=== PATIENT | male | born 1965 | race Caucasian/White ===

== ENCOUNTER 2024-03-06 21:54 | Emergency (ER) | payer OTHER, SELFPAY ==
[2024-03-06 22:04] VITALS: BP 154/78; PULSE 88; RESP 18; TEMP 36.8; O2SAT 99; BMI 27.5
--- NOTE | 2024-03-06 22:14 | CRLHL7_ITS ---
For Patients: As a result of the Century Cures Act, medical imaging exams and procedure reports are released immediately into your electronic medical record. You may view this report before your referring provider. If you have questions, please contact your health care provider. INDICATION: Leg pain and swelling TECHNIQUE: Ultrasound venous duplex left lower extremity. Real-time mckeon-scale (B mode 2D), color Doppler, and spectral Doppler imaging were performed with compression and augmentation. COMPARISON: None FINDINGS: Deep veins: Thrombosis of the posterior tibial vein is present. The common femoral, femoral and popliteal veins are patent and compressible. Superficial veins: The visualized greater saphenous and superficial veins of the leg and calf are unremarkable. Soft tissue: No masses or cysts are identified. No adenopathy is seen. IMPRESSION: 1. Thrombosis of the posterior tibial vein is present. The findings were discussed with Dr. Loera at 11:04 PM. Dictated by Damian Taylor MD @ 03/06/2024 11:04:02 PM Dictated by: Damian Taylor MD @ 03/06/2024 23:04:11 (Electronically Signed)
--- OUTSIDE RECORDS SUMMARY | 2024-03-06 23:15 | XMS_ITS | Clinical Summary ---
Author Organization [facility] Address [address] [place] [address] Care Team Providers Care Vegetable Sorter Name Role Phone Rahul Sepulveda APRN, CNP Primary Care Provid er Source Comments You are receiving this document as you are listed as the primary care provider,follow-up provider, or the patient has been referred to you for consultation.This is in compliance with the Medicare and[facility] EHR Incentive Program,which states Providers who transition their patient to another setting of careor provider of care or refers their patient to another provider of care shouldprovide summary care record for each transition of care or referral. [facility] All[facility]ies No known active allergies Medications Medication Sig Dispensed Refills Start Date End Date Status methylPREDNISolone (MEDROL 21 TABLET DOSEPACK) 4 MG tabletIndications:I njury of right foot, initial encounter Follow package directions 21 Tablet 08/15/2022 Active Active Problems No known active problems Immunizations Name Administration Dates Next Due Flu Vac Preserv Free (3+yrs) 07/27/2012,07/11/20 07 Influenza IIV4 (Quadrivalent) 0.5mL (22248) 02/2022,07/19/2020,08/08/2013 Influenza, Unspecified Formulation 07/02/2002 Moderna Monovalent 12+ 09/28/2020,08/31/2020 Pfizer Monovalent 12+ Purple Top 08/19/2021 TDAP (ADACEL) 08/08/2006 Family History Medical History Relation Name Comments High Cholesterol Father Hypertension Father Cancer, Breast Mother Clotting Disorder Mother protein S def Diabetes, Type II Mother High Cholesterol Mother Hypertension Mother Hypertension Brother 2 High Cholesterol Sister 1 Clotting Disorder Sister 2 Protein S def Cancer, Breast Sister 3 Clotting Disorder Sister 3 Protein S def Relation Name Status Comments Father Alive Mother Alive Brother 1 Alive Brother 2 Alive Daughter Alive Sister 1 Alive Sister 2 Alive Sister 3 Alive Son 1 Alive Son 2 Alive Social History Tobacco Use Types Packs/Day Years Used Date Smoking Tobacco: Never Alcohol Use Standard Drinks/Week Comments Yes 5 (1 standard drink = 0.6 oz pur e alcohol) Sex and Gender Information Value Date Recorded Sex Assigned at Not on file Gender Identity Not on file Sexual Orientation Not on file Last Filed Vital Signs Vital Sign Reading Time Taken Comments Blood Pressure 130/74 07/21/2022 3:06 PM NAVAL GUNFIRE LIAISON OFFICER Pulse 85 07/21/2022 3:06 PM [employer]AL GUNFI[employer] LIAISON OFFICER Temperature 36.2 ??C (97.2 ??F) 08/15/2022 8:09 AM CS T Respiratory Rate - - Oxygen Saturation 96% 07/21/2022 3:06 PM NAVAL GUNFIRE LIAISON OFFICER Inhaled Oxygen Concentration - - Weight 80.3 kg (177 lb) 10/05/2023 7:34 AM NAVAL GUNFIRE LIAISON OFFICER Height 175.3 cm (5' 9) 10/05/2023 7:34 AM NAVAL GUNFIRE LIAISON OFFICER Body Mass Index 26.14 10/05/2023 7:34 AM NAVAL GUNFIRE LIAISON OFFICER Plan of Treatment Health Maintenance Due Date Last Done Comments Diabetes Screening- (based on age and BMI) 1965 Hep C Screening (Preventive Services) 1965 PSA Screening Discussion 1965 HIV Screening (Preventive Services) 1981 Adult Preventive Visit 1983 HepB (1) 1984 Zoster/Shingles (1 of 2) 2015 DTaP/Tdap/Td (2 - Tdap) 08/08/2016 08/08/2006 Cholesterol 08/08/2018 08/08/2013, 07/13, 08/08/2006 FIT Colon Cancer Screening 02/06/2023 02/06/2022 COVID-19 Vaccine ( season) 2023 08/19/2021, 09/28/2020, 08/31/2020 Influenza (#1) 2024 08/19/2021, 02/2020, 07/09/2019, Additional history exists HepA Aged Out No longer eligi ble based on patient's age to complete this topic Hib Aged Out No longer eligi ble based on patient's age to complete this topic IPV (Polio) Aged Out No longer eligi ble based on patient's age to complete this topic MCV4 Aged Out No longer eligi ble based on patient's age to complete this topic Pneumococcal Aged Out No longer eligi ble based on patient's age to complete this topic Procedures Procedure Name Priority Date/Time Associated Diagnosis Comments FIT COLON RECTAL CANCER SCREENING Routine 02/06/2022 7:20 AM CDT Encounter for screening for malignant neoplasm of colon [ICD-10-CM] LIPID PANEL & DIRECT LDL (IF NEEDED) Routine 08/08/2013 11:29 AM [employer] GUNFI[employer] LIAISON OFFICER Screening for lipoid disorders from Last 3 Months or Most Recently Relevant to Health Maintenance Results * FIT Colon Rectal Cancer Screening (02/06/2022 7:20 AM CDT) FIT Specimen 1 Negative Negative 02/08/2022 8:54 AM CDT [facility] Stool Non-blood Collection / Unknown 02/06/2022 7:20 AM CDT 02/07/2022 9:21 PM CDT Ana Martini APRN, DNP LAB_1 [facility] [address] [phone] * (ABNORMAL) Lipid Panel and Direct LDL(If Needed) (08/08/2013 11:29 AM [employer] LIAISON OFFICER) Cholesterol 222(H) 0 - 200 mg/dL HP CONVERSION Triglycerides 78 0 - 149 mg/dL HP CONVERSION HDL Cholesterol 50 >39 mg/dL HP CONVERSION Cholesterol/HDL Ratio Screen 4.4 HP CONVERSION LDL Calculated 156(H) 19 - 130 mg/dL HP CONVERSION Hours Fasting 12.0 HP CONVERSION 08/08/2013 11:2 9 AM [employer] LIAISON OFFICER 08/08/2013 11:29 AM [employer] LIAISON OFFICER Narrative HP CONVERSION - 08/08/2013 12:19 PM NAVAL G[employer]FI[employer] LIAISON OFFICER Performed at [facility], [address] [facility], [place] [address] Marie Hess APRN, BRIAN LAB_1 HP CONVERSION from Last 3 Months or Most Recently Relevant to Health Maintenance Care Teams Vegetable Sorter Relationship Specialty Start Date End Date Rahul Sepulveda APRN, BEST WORKER [address] [place] [id number] PCP - General 11/14/10
--- OUTSIDE RECORDS SUMMARY | 2024-03-06 23:15 | XMS_ITS | Encounter Summary ---
Author Organization [employer] [facility] Address [address] [place] [address] Care Team Providers Care Certified Medication Technician Name Role Phone Rahul Sepulveda APRN, LIFT OPERATOR Primary Care Provid er Encounter Details Date Type Department Care Team (Late st Contact Info) Description 01/26/2022 Lab Requisition Tre [phone] Ana Martini APRN, DNP [address] [facility] [address] [place] [address] Encounter for screening for malignant neoplasm of colon Social History Tobacco Use Types Packs/Day Years Used Date Smoking Tobacco: Never Alcohol Use Standard Drinks/Week Comments Yes 5 (1 standard drink = 0.6 oz pur e alcohol) Sex and Gender Information Value Date Recorded Sex Assigned at Not on file Gender Identity Not on file Sexual Orientation Not on file documented as of this encounter Plan of Treatment Not on file documented as of this encounter Procedures Procedure Name Priority Date/Time Associated Diagnosis Comments FIT COLON RECTAL CANCER SCREENING Routine 02/06/2022 7:20 AM CDT Encounter for screening for malignant neoplasm of colon [ICD-10-CM] [facility] FIT KIT Routine 01/27/2022 9:3 7 PM CDT Encounter for screening for malignant neoplasm of colon [ICD-10-CM] documented in this encounter Results * FIT Colon Rectal Cancer Screening (02/06/2022 7:20 AM CDT) FIT Specimen 1 Negative Negative 02/08/2022 8:54 AM CDT [facility] Stool Non-blood Collection / Unknown 02/06/2022 7:20 AM CDT 02/07/2022 9:21 PM CDT Ana Lara Lianet FREEDMAN DNP LAB_[address] Performing [address] [facility] de Phone Number [facility] [address] [place] [address] * [facility] FIT KIT (01/27/2022 9:37 PM CDT) [facility] FIT KIT SENT Yes 02/07/2022 9:21 PM CDT [facility] KIT RECEIVED Kit Received at [facility] 02/07/2022 9:21 PM CDT [facility] Stool Non-blood Collection / Unknown 01/27/2022 9:37 PM CDT 01/27/2022 9:38 PM CDT Ana Martini APRN, OPAL LAB_1 Performing Organization Address [facility] de Phone Number [address] [phone] documented in this encounter Visit Diagnoses Diagnosis Encounter for screening for malignant neoplasm of colon Special screening for malignant neoplasms, colon documented in this encounter Care Teams Certified Medication Technician Relationship Specialty Start Date End Date Rahul Sepulveda APRN, BRIAN [address] [place] [address] PCP - General 11/14/10 documented as of this encounter
--- OUTSIDE RECORDS SUMMARY | 2024-03-06 23:15 | XMS_ITS | Referral Summary ---
Author Organization [facility] Address [address] [place] [address] Care Team Providers Care Jet Operator Name Role Phone [facility] Provi gildardo Allergies No known active allergies Medications Medication Sig Dispensed Refills Start Date End Date Status azithromycin (ZITHROMAX) 250 MG tabletIndications:Bro nchitis Two tablets first day, then one tablet daily for four days. 6 tablet 10/28/2018 Active Active Problems No known active problems Immunizations Name Administration Dates Next Due TDAP Vaccine (Boostrix) 08/08/2006 Social History Tobacco Use Types Packs/Day Years Used Date Smoking Tobacco: Never Smokeless Tobacco: Never Alcohol Use Standard Drinks/Week Comments Yes 0 (1 standard drink = 0.6 oz pur e alcohol) Sex and Gender Information Value Date Recorded Sex Assigned at Not on file Gender Identity Not on file Sexual Orientation Not on file Last Filed Vital Signs Vital Sign Reading Time Taken Comments Blood Pressure 122/78 10/28/2018 1:24 PM CDT Pulse 85 10/28/2018 1:24 PM CDT Temperature 36.4 ??C (97.5 ??F) 10/28/2018 1:24 PM CD T Respiratory Rate - - Oxygen Saturation 96% 10/28/2018 1:24 PM CDT Inhaled Oxygen Concentration - - Weight 80.3 kg (177 lb) 10/28/2018 1:24 PM CDT Height 175.3 cm (5' 9) 10/28/2018 1:24 PM CDT Body Mass Index 26.14 10/28/2018 1:24 PM CDT Plan of Treatment Not on file Care Teams Jet Operator Relationship Specialty Start Date End Date [address] [place] [address] PCP - General 10/28/18
--- OUTSIDE RECORDS SUMMARY | 2024-03-06 23:15 | XMS_ITS | Clinical Summary ---
Author Organization [employer] [facility] Address [place], [place] [address] Care Team Providers Care Import Export Coordinator Name Role Phone Family, Ellie San - [place] Primary Care Provider Unavailable Allergies No known active allergies Social History Tobacco Use Types Packs/Day Years Used Date Smoking Tobacco: Never Assessed Sex and Gender Information Value Date Recorded Sex Assigned at Not on file Gender Identity Not on file Sexual Orientation Not on file Last Filed Vital Signs Vital Sign Reading Time Taken Comments Blood Pressure 157/91 08/07/2022 6:39 PM WAREHOUSE ENGINEER Pulse 78 08/07/2022 6:39 PM WAREHOUSE ENGINEER Temperature 36.6 ??C (97.9 ??F) 08/07/2022 6:39 PM CS T Respiratory Rate 18 08/07/2022 6:39 PM WAREHOUSE ENGINEER Oxygen Saturation 99% 08/07/2022 6:39 PM WAREHOUSE ENGINEER Inhaled Oxygen Concentration - - Weight 81.6 kg (180 lb) 08/07/2022 6:39 PM WAREHOUSE ENGINEER Height 175.3 cm (5' 9) 08/07/2022 6:39 PM WAREHOUSE ENGINEER Body Mass Index 26.58 08/07/2022 6:39 PM WAREHOUSE ENGINEER Plan of Treatment Health Maintenance Due Date Last Done Comments Tdap 1976 Depression screening for age 12+ 1977 HIV for age 15-65 1980 BMI (ht and wt on same day) for age 18+ 1983 Hepatitis C screening for ag e 18-79 1983 Tetanus booster 1985 Colonoscopy through age 75 2010 Lipids for age 45-75 2010 Zoster (shingles) series for age 50+ (1 of 2) 2015 COVID-19 vaccine series ( season) 2023 08/19/2021 Influenza for age 50-64 04/13/2023 Pneumococcal series for age 6-64 Aged Out No longer eligible based on patient's age to complete this topic Care Teams Import Export Coordinator Relationship Specialty Start Date End Date Ellie Garcia - [place] PCP - General Family Practice 08/07/22
--- OUTSIDE RECORDS SUMMARY | 2024-03-06 23:15 | XMS_ITS | Clinical Summary ---
Author Organization [facility] Address [address] [place] [address] Care Team Providers Care Crop Puller Name Role Phone [facility] Primary Care Provi gildardo Allergies No known [...] of Treatment Not on file Care Teams Crop Puller Relationship Specialty Start Date End Date [address] [place] [address] PCP - General 10/28/18
--- NOTE | 2024-03-06 23:19 | ED.GENADULT ---
HPI - General Adult General Chief complaint: Extremity Pain/Injury, Lower Stated complaint: left leg calf pain Time Seen by Provider: 03/06/24 22:08 Source: patient Mode of arrival: ambulatory Limitations: no limitations History of Present Illness HPI narrative: 58-year-old male presenting today with left calf pain. The pain is been present since last week. Patient states he was traveling to for [place] by car in several days later his calf pain started. He denies fevers, chills, nausea, vomiting. He denies any redness of the calf. He states that the calf has gotten more swollen. He denies shortness of breath, cough or chest pain. He states that several of his family members have had history is of DVT any does have a protein S deficiency the runs in his family. He denies any personal history of DVTs in the past or blood clots. He is not on any anticoagulation. Related Data Previous Rx's ?Medication ?Instructions ?Recorded apixaban 5 mg tablet (Eliquis) 5 mg PO BID #60 tabs 03/06/24 warfarin 5 mg tablet 5 mg PO DAILY #30 tabs 03/06/24 Allergies Allergy/AdvReac Type Severity Reaction Status Date / Time No Known Drug Allergies Allergy Verified 03/06/24 22:06 Review of Systems Status of ROS: Reports: 10 or more systems reviewed and unremarkable except as noted in History and below Exam Narrative: Exam Narrative: Well-nourished well-developed patient in no acute distress. Alert and oriented. Answers questions appropriately. Mood and affect are appropriate. Thoughts are goal oriented and rational. No tangential or magical thinking noted. Patient speaks in full sentences without needing to catch his breath. HEENT: Normocephalic atraumatic. Extraocular muscles are intact. Conjunctivae are moist without any icterus noted. Moist mucous membranes. Cardiovascular is regular rate and rhythm, S1-S2 present without any murmurs. Lungs are clear auscultation bilaterally. No wheezes rhonchi or rales are appreciated. Extremities: Bilateral lower extremities are without edema. Normal DP and PT pulses. Left calf is visibly more swollen than the right. He has tenderness to palpation of the calf. He has good DP and PT pulses. There is no redness or skin changes. Skin: Well perfused without any obvious rashes. Const: Vital Signs, click to edit/add: Vital Signs - 24 hr 03/06/24 22:04 Temperature 98.2 F Pulse Rate [Right Pulse Oximeter] 88 Respiratory Rate 18 Blood Pressure [Ri ght Upper Arm] 154/78 H Pulse Oximetry 99 Oxygen Delivery Me thod Room Air Course Course ED Course: Ultrasound of lower extremity does show a DVT. Eliquis 10 mg x 1 given in the ED today. Vital Signs Vital signs: Initial Vital Signs Temperature 98.2 F 03/06/24 22:04 Temperature Source Temporal Artery Scan 03/06/24 22:04 Pulse Rate 88 03/06/24 22:04 Respiratory Rate 18 03/06/24 22:04 Blood Pressure 154/78 H 03/06/24 22:04 Blood Pressure Mean 103 03/06/24 22:04 Blood Pressure Position Sitting 03/06/24 22:04 Pulse Oximetry 99 03/06/24 22:04 Oxygen Delivery Method Room Air 03/06/24 22:04 Vital Signs Temperature 98.2 F 03/06/24 22:04 Pulse Rate 88 03/06/24 22:04 Respiratory Rate 18 03/06/24 22:04 Blood Pressure 154/78 H 03/06/24 22:04 Pulse Oximetry 99 03/06/24 22:04 Oxygen Delivery Method Room Air 03/06/24 22:04 Temperature 98.2 F 03/06/24 22:04 Pulse Rate 88 03/06/24 22:04 Respiratory Rate 18 03/06/24 22:04 Blood Pressure 154/78 H 03/06/24 22:04 Pulse Oximetry 99 03/06/24 22:04 Oxygen Delivery Method Room Air 03/06/24 22:04 Medical Decision Making MDM Narrative Medical decision making narrative: 58-year-old male with DVT. Patient will be started on Eliquis. Follow-up with primary care next week. Imaging Data Venous US: Attestation: I have reviewed the pertinent imaging results. Radiologist's impression: INDICATION: Leg pain and swelling TECHNIQUE: Ultrasound venous duplex left lower extremity. Real-time mckeon-scale (B mode 2D), color Doppler, and spectral Doppler imaging were performed with compression and augmentation. COMPARISON: None FINDINGS: Deep veins: Thrombosis of the posterior tibial vein is present. The common femoral, femoral and popliteal veins are patent and compressible. Superficial veins: The visualized greater saphenous and superficial veins of the leg and calf are unremarkable. Soft tissue: No masses or cysts are identified. No adenopathy is seen. IMPRESSION: 1. Thrombosis of the posterior tibial vein is present. Discharge Plan Discharge Clinical Impression: DVT (deep venous thrombosis) Patient Disposition: Home, Self-Care Condition: Stable Additional Instructions: Start Eliquis as prescribed. Follow-up with your primary care provider next week. Return to the ER if you develop shortness of breath, cough or fever. Coumadin also prescribed in the event that you cannot afford the Eliquis. If you take the Coumadin instead of the Eliquis, you need to have an INR check on Sunday. Prescriptions: New Eliquis 5 mg tablet 5 mg PO BID Qty: 60 0RF Rx Instructions: Take 10 mg tomorrow morning, then 5 mg twice daily subsequently. warfarin 5 mg tablet 5 mg PO DAILY Qty: 30 0RF Follow Up/Referrals: Provider,Not a Local [Primary Care Provider] - Stand Alone Forms: [employer] Info Instructions
[2024-03-06] MEDS: APIXABAN 5 MG TABLET 10 MG PO (23:37)
[2024-03-07] VITALS: BP 145/74; PULSE 81; RESP 18; TEMP 36.8; O2SAT 99
[2024-03-07 00:45] VITALS: BP 145/74; PULSE 81; RESP 18; TEMP 36.8
== END 2024-03-07 00:45 | disposition home or self-care (01) ==
PROVIDERS: Emergency Provider Family Medicine
DX: I82.402 Acute embolism and thrombosis of unspecified deep veins of left lower extremity (principal)
CPT/HCPCS: 93971; 99284; A9270

== ENCOUNTER 2024-03-15 12:20 | Emergency (ER) | payer OTHER, SELFPAY ==
[2024-03-15 12:34] VITALS: BP 138/89; PULSE 97; RESP 16; TEMP 36.6; O2SAT 95
--- NOTE | 2024-03-15 12:51 | CRLHL7_ITS ---
For Patients: As a result of the Century Cures Act, medical imaging exams and procedure reports are released immediately into your electronic medical record. You may view this report before your referring provider. If you have questions, please contact your health care provider. INDICATION: Shortness of breath right lower chest pain TECHNIQUE: CT chest with 95 mL Isovue 370 COMPARISON: None. FINDINGS: Lungs and pleura: Wedge-shaped mixed ground-glass and parenchymal subpleural consolidation in the right lower lobe likely reflecting pulmonary infarction. There is bibasilar atelectasis. No findings for right heart strain. Heart and vasculature: Heart size is normal. Thoracic aorta and pulmonary artery are normal in caliber. Right lower lobe segmental and subsegmental pulmonary emboli. Lymph nodes/mediastinum: No mediastinal, hilar, or axillary adenopathy. Chest wall: No masses. Bones: Unremarkable for age. IMPRESSION: 1. Right lower lobes segmental and subsegmental pulmonary emboli. There is a wedge-shaped mixed ground-glass and parenchymal consolidation in the right lower lobe that most likely reflects a pulmonary infarction. No findings for right heart strain. Results called to Dr. Florez on 03/15/24 at 2:45pm. Please note that all CT scans at this facility use dose modulation, iterative reconstruction, and/or weight-based dosing when appropriate to reduce radiation dose to as low as reasonably achievable. Dictated by Sarita Irving MD @ 03/15/2024 2:45:23 PM (Electronically Signed)
--- NOTE | 2024-03-15 12:51 | CRLHL7_ITS ---
For Patients: As a result of the Century Cures Act, medical imaging exams and procedure reports are released immediately into your electronic medical record. You may view this report before your referring provider. If you have questions, please contact your health care provider. INDICATION: Back pain abdominal pain fever chills TECHNIQUE: CT abdomen and pelvis with 95 mL Isovue 370 COMPARISON: None. FINDINGS: Liver: Normal in size and attenuation. No suspicious masses. Gallbladder and bile ducts: No stones or inflammation. No biliary dilatation. Pancreas: Unremarkable. No mass or inflammation. Spleen: Normal in size. No masses. Adrenal glands: Normal in size. No nodules. Kidneys: Normal in size. No suspicious masses, stones, or hydronephrosis. GI tract: Unremarkable. Normal in caliber. No sign of mass or inflammation. Normal appendix. Vasculature: Abdominal aorta is normal in caliber. Lymph nodes: No lymphadenopathy. Peritoneum/Abdominal Wall: Unremarkable. No sign of mass or infiltration. No free air or significant free fluid. Pelvis: Enlarged prostate gland. Bones: Unremarkable for age. IMPRESSION: No acute findings in the abdomen or pelvis. No hydronephrosis. Please note that all CT scans at this facility use dose modulation, iterative reconstruction, and/or weight-based dosing when appropriate to reduce radiation dose to as low as reasonably achievable. Dictated by Sarita Irving MD @ 03/15/2024 2:40:06 PM (Electronically Signed)
--- OUTSIDE RECORDS SUMMARY | 2024-03-15 13:04 | XMS_ITS | Referral Summary ---
Author Organization [facility] Address [address] [place] [address] Care Team Providers Care Grant Specialist Name Role Phone [facility] Primary Care Provi gildardo Allergies No [...] of Treatment Not on file Care Teams Grant Specialist Relationship Specialty Start Date End Date [address] [place] [address] PCP - General 10/28/18
--- OUTSIDE RECORDS SUMMARY | 2024-03-15 13:04 | XMS_ITS | Clinical Summary ---
Author Organization [place] Address [address] [place] [address] Care Team Providers Care Product Manager Name Role Phone [facility] Primary Care Provi gildardo Allergies No known [...] of Treatment Not on file Care Teams Product Manager Relationship Specialty Start Date End Date [address] [place] [address] PCP - General 10/28/18
--- OUTSIDE RECORDS SUMMARY | 2024-03-15 13:04 | XMS_ITS | Clinical Summary ---
Author Organization [employer] [facility] Address [place], [place] [address] Care Team Providers Care Tour Guide Name Role Phone Family, Ellie San - [place] Primary Care Provider Unavailable Allergies No known active allergies Social History Tobacco Use Types Packs/Day Years Used Date Smoking Tobacco: Never Assessed Sex and Gender Information Value Date Recorded Sex Assigned at Not on file Gender Identity Not on file Sexual Orientation Not on file Last Filed Vital Signs Vital Sign Reading Time Taken Comments Blood Pressure 157/91 08/07/2022 6:39 PM REJOGGER Pulse 78 08/07/2022 6:39 PM REJOGGER Temperature 36.6 ??C (97.9 ??F) 08/07/2022 6:39 PM CS T Respiratory Rate 18 08/07/2022 6:39 PM REJOGGER Oxygen Saturation 99% 08/07/2022 6:39 PM REJOGGER Inhaled Oxygen Concentration - - Weight 81.6 kg (180 lb) 08/07/2022 6:39 PM REJOGGER Height 175.3 cm (5' 9) 08/07/2022 6:39 PM REJOGGER Body Mass Index 26.58 08/07/2022 6:39 PM REJOGGER Plan of Treatment Health Maintenance Due Date [...] age to complete this topic Care Teams Tour Guide Relationship Specialty Start Date End Date Ellie Garcia - [place] PCP - General Family Practice 08/07/22
--- OUTSIDE RECORDS SUMMARY | 2024-03-15 13:04 | XMS_ITS | Encounter Summary ---
Author Organization [facility] Address [address] [address] Care Team Providers Care Beef Farmer Name Role Phone Rahul Sepulveda APRN, BIOLOGY MANAGER Primary Care Provid er Encounter Details Date Type Department Care Team (Late st Contact Info) Description 01/26/2022 Lab Requisition Tre [phone] Ana Martini APRN, DNP [address] [facility] [address] [place] [address] Encounter for screening for malignant neoplasm of [...] Procedure Name Priority Date/Time Associated Diagnosis Comments FIT,OCCULT BLOOD, STOOL Routine 02/06/2022 7:20 AM CDT Encounter for screening for malignant neoplasm of colon [ICD-10-CM] [facility] FIT KIT Routine 01/27/2022 9:3 7 PM CDT Encounter for screening for malignant neoplasm of colon [ICD-10-CM] documented in this encounter Results * FIT Colon Rectal Cancer Screening (02/06/2022 7:20 AM CDT) FIT Specimen 1 Negative Negative 02/08/2022 8:54 AM CDT [facility] Stool Non-blood Collection / Unknown 02/06/2022 7:20 AM CDT 02/07/2022 9:21 PM CDT Ana M Lianet FREEDMAN DNP LAB_1 Performing Organization Address [facility] de Phone Number [facility] [address] [place] [address] * [facility] (01/27/2022 9:37 PM CDT) [facility] FIT [facility] SENT Yes 02/07/2022 9:21 PM CDT [facility] K[facility] RECEIVED Kit Received at [facility] 02/07/2022 9:21 PM CDT [facility] Stool Non-blood Collection / Unknown 01/27/2022 9:37 PM CDT 01/27/2022 9:38 PM CDT Ana Martini APRN, OPAL LAB_1 Performing Organization Address [facility] Phone Number [facility] [address] [place] [address] documented in this encounter Visit Diagnoses Diagnosis Encounter for screening for malignant neoplasm of colon Special screening for malignant neoplasms, colon documented in this encounter Care Teams Beef Farmer Relationship Specialty Start Date End Date Rahul Sepulveda APRN, BRIAN [address] [place] [address] PCP - General 11/14/10 documented as of this encounter
--- OUTSIDE RECORDS SUMMARY | 2024-03-15 13:04 | XMS_ITS | Clinical Summary ---
[facility] Organization [facility] Address [address] [place] [address] Care Team Providers Care Ice Cream Chef Name Role Phone Rahul Sepulveda APRN, CNP Primary Care Provid er Source Comments You are receiving this document as you are listed as the primary care provider,follow-up provider, or the patient has been referred to you for consultation.This is in compliance with the Medicare and[facility] EHR Incentive Program,which states Providers who transition their patient to another setting of careor provider of care or refers their patient to another provider of care shouldprovide summary care record for each transition of care or referral. [facility] Allergies No known active allergies Medications Medication Sig Dispensed Refills Start Date End Date Status methylPREDNISolone (MEDROL 21 TABLET DOSEPACK) 4 MG tabletIndications:I njury of right foot, initial encounter Follow package directions 21 Tablet 08/15/2022 Active Active Problems No known active problems Immunizations Name Administration Dates Next Due Flu Vac Preserv Free (3+yrs) 07/27/2012,07/11/20 07 Influenza IIV4 (Quadrivalent) 0.5mL (12458) 02/2022,07/19/2020,08/08/2013 Influenza, Unspecified Formulation 07/02/2002 Moderna Monovalent [...] Comments Blood Pressure 130/74 07/21/2022 3:06 PM MANAGING ATTORNEY Pulse 85 07/21/2022 3:06 PM MANAGING ATTORNEY Temperature 36.2 ??C (97.2 ??F) 08/15/2022 8:09 AM CS T Respiratory Rate - - Oxygen Saturation 96% 07/21/2022 3:06 PM MANAGING ATTORNEY Inhaled Oxygen Concentration - - Weight 80.3 kg (177 lb) 10/05/2023 7:34 AM MANAGING ATTORNEY Height 175.3 cm (5' 9) 10/05/2023 7:34 AM MANAGING ATTORNEY Body Mass Index 26.14 10/05/2023 7:34 AM MANAGING ATTORNEY Plan of Treatment Health Maintenance Due Date [...] LDL (IF NEEDED) Routine 08/08/2013 11:29 AM MANAGING ATTORNEY Screening for lipoid disorders from Last 3 Months or Most Recently Relevant to Health Maintenance Results * FIT Colon Rectal Cancer Screening (02/06/2022 7:20 AM CDT) FIT Specimen 1 Negative Negative 02/08/2022 8:54 AM CDT [facility] Stool Non-blood Collection / Unknown 02/06/2022 7:20 AM CDT 02/07/2022 9:21 PM CDT Ana Martini APRN, DNP LAB_1 Performing Organization Address City/State/[facility] Co de Phone Number [facility] [address] [phone] * (ABNORMAL) Lipid Panel and Direct LDL(If Needed) (08/08/2013 11:29 AM MANAGING ATTORNEY) Cholesterol 222(H) 0 - 200 mg/dL HP CONVERSION Triglycerides 78 0 - 149 mg/dL HP CONVERSION HDL Cholesterol 50 >39 mg/dL HP CONVERSION Cholesterol/HDL Ratio Screen 4.4 HP CONVERSION LDL Calculated 156(H) 19 - 130 mg/dL HP CONVERSION Hours Fasting 12.0 HP CONVERSION 08/08/2013 11:2 9 AM MANAGING ATTORNEY 08/08/2013 11:29 AM MANAGING ATTORNEY Narrative HP CONVERSION - 08/08/2013 12:19 PM MANAGING ATTORNEY Performed at [facility], [address] [facility], [place] [address] Marie Hess APRN, BRIAN LAB_1 HP CONVERSION from Last 3 Months or Most Recently Relevant to Health Maintenance Care Teams Ice Cream Chef Relationship Specialty Start Date End Date Rahul Sepulveda APRN, BRAZER CRAWLER TORCH [address] [place] [id number] PCP - General 11/14/10
[2024-03-15 13:13] LABS: Basophils Absolute Auto 0.01 K/uL (0.00-0.30); Basophils Percent Auto 0.1 % (0.0-3.0); Eosinophils Absolute Auto 0.03 K/uL (0.00-0.50); Eosinophils Percent Auto 0.3 % (0.0-7.0); Hematocrit 46.1 % (37.0-53.0); Hemoglobin* 15.6 gm/dL (13.5-17.5); Immature Granulocytes Abs Auto 0.01 K/uL (0.00-0.30); Immature Granulocytes Pct Auto 0.1 %; Mean Corpuscular HGB Conc 34 gm/dL (32-36); Mean Corpuscular Hemoglobin 31 pg (26-34); Mean Corpuscular Volume 91 fL (80-100); Monocytes Percent Auto 11.2 % (0.0-11.0); Neutrophils Percent Auto 72.3 % (42.0-72.0); Platelet Count* 225 K/uL (140-440); RDW Coefficient of Variation % 11.9 % (11.5-15.5); Red Blood Count 5.09 m/uL (4.30-5.90); White Blood Count* 9.14 K/uL (4.50-11.00)
[2024-03-15 13:15] LABS: Slide Review Reflex No
--- NOTE | 2024-03-15 13:19 | ED.BACK ---
HPI - Back Pain/Injury General Date Seen: 03/15/24 Chief Complaint: Back Injury/Pain Stated Complaint: DVT- back & shoulder pain Time Seen by Provider: 03/15/24 12:26 Source: patient and family Mode of arrival: ambulatory Limitations: no limitations History of Present Illness HPI Narrative: Patient is a very nice 50-year-old gentleman who presents here with right-sided back pain and chest discomfort. He was diagnosed with a DVT on March 06, started on Coumadin initially was subtherapeutic and then switched over to Eliquis 3 days ago. Three days ago he developed right flank back discomfort, especially when he is supine, but also to a degree when he sits up, he notices it worse when he takes a deep breath in, denies any shortness of breath, associated with that the pain seems to come and go however. Did have a fever last night up to 102 at home. Negative home COVID test with this. Feeling a lot better this morning, no chills, denies any dysuria frequency diarrhea nausea vomiting, or any other symptoms such as rash. His significant other is a nurse practitioner with our clinic system here. He does have a history of protein S deficiency. Work related injury: No Related Data Home Medications ?Medication ?Instructions ?Recorded ?Confirmed calm magnesium PO .hs 03/13/24 03/13/24 cetirizine 10 mg tablet (Zyrtec) 10 mg PO QDAY 03/13/24 03/15/24 inositol 600 mg/600 mg (1/4 mg PO DAILY 03/13/24 03/13/24 teaspoonful) oral powder magnesium glyconate 500 mg PO DAILY 03/13/24 03/15/24 nitric oxide PO DAILY 03/13/24 Previous Rx's ?Medication ?Instructions ?Recorded apixaban 5 mg tablet (Eliquis) 5 mg PO BID #180 tabs 03/13/24 propranolol 10 mg tablet 10 mg PO TID PRN anxiety and 03/13/24 elevated blood pressure #90 tabs Allergies Allergy/AdvReac Type Severity Reaction Status Date / Time No Known Drug Allergies Allergy Verified 03/15/24 13:19 Review of Systems Status of ROS: Reports: 10 or more systems reviewed and unremarkable except as noted in History and below PFSH PFSH Social History Smoking Status: Never smoker Second hand tobacco smoke exposure: No How often do you have a drink containing alcohol: never AUDIT-C Alcohol total score: 0 Non-prescribed substance use: denies use Exam Narrative: Exam Narrative: On examination he is in noted apparent distress in room 1 speaking to me normally pupils equal round reactive to light there is no scleral icterus redness is TMs bilaterally are normal, oropharynx is normal, chest is good air entry bilateral with no wheezing crackles noted, heart sounds are normal does splint a little bit on the right side when he takes a deep breath in however. No CVA tenderness abdomen is soft and benign. No organomegaly bowel sounds are normal moves all extremities independently well and his partner tells me that his left leg swelling with a DVT is markedly improved. Const: Vital Signs, click to edit/add: Vital Signs - 24 hr 03/15/24 12:34 Temperature 98 F Pulse Rate [Pulse Oximeter] 97 Respiratory Rate 16 Blood Pressure [Ri ght Upper Arm] 138/89 Pulse Oximetry 95 Oxygen Delivery Me thod Room Air Documenting provider has reviewed patient's vital signs: yes Course Reevaluation(s) Time of Reevaluation #1: 14:23 Reevaluation #1: Patient is doing well explained to him my read shows that there is the small PE, peripherally with lung infarction which is likely accounting for his pain. I do not see any evidence of right heart strain. Troponin negative EKG normal, with no tachycardia. I do believe this can be treated adequately with his Eliquis, and also pain medication. He was not on the Eliquis initially, so this is not a failure of the medication. Troponin is negative, EKG is normal. Time of Reevaluation #2: 14:59 Reevaluation #2: I discussed with him there is evidence of a pulmonary embolism with the lung infarction, this is causing his pain. No evidence of right heart strain the us no indication for thrombolytics. We talked about pain medication for this using the Percocet at night to sleep. Along with some Tylenol. Also using 10 mg twice daily of the Eliquis he was on the 5, is suggested. We went over the risks benefits and side effects of the treatment of both the Percocet in the Eliquis. Follow-up with primary care. Return here if worsening shortness of breath chest pain. Vital Signs Vital signs: Initial Vital Signs Temperature 98 F 03/15/24 12:34 Temperature Source Temporal Artery Scan 03/15/24 12:34 Pulse Rate 97 03/15/24 12:34 Respiratory Rate 16 03/15/24 12:34 Blood Pressure 138/89 03/15/24 12:34 Blood Pressure Mean 105 03/15/24 12:34 Blood Pressure Position Sitting 03/15/24 12:34 Pulse Oximetry 95 03/15/24 12:34 Oxygen Delivery Method Room Air 03/15/24 12:34 Vital Signs Temperature 98 F 03/15/24 12:34 Pulse Rate 97 03/15/24 12:34 Respiratory Rate 16 03/15/24 12:34 Blood Pressure 138/89 03/15/24 12:34 Pulse Oximetry 95 03/15/24 12:34 Oxygen Delivery Method Room Air 03/15/24 12:34 Temperature 98 F 03/15/24 12:34 Pulse Rate 97 03/15/24 12:34 Respiratory Rate 16 03/15/24 12:34 Blood Pressure 138/89 03/15/24 12:34 Pulse Oximetry 95 03/15/24 12:34 Oxygen Delivery Method Room Air 03/15/24 12:34 Medications Administered Medications: Discontinued Medications Generic Name Dose Route Start Last Admin Trade Name Freq PRN Reason Stop Dose Admin Sodium Chloride 1,000 mls @ 1,000 mls/hr 03/15/24 13:00 03/15/24 13:22 0.9 % Sodium Chloride 1000 Ml IV 03/15/24 13:59 1,000 mls/hr .Q1H LAN Administration MDM - Back Pain/Injury MDM Narrative Medical decision making narrative: During the evaluation of this patient I considered multiple differential diagnosis is. The life-threatening differential diagnosis include coronary disease/MO, pulmonary embolism, pneumothorax, pneumonia, and aortic dissection. Other differential diagnosis included but were not limited to pericarditis, myocarditis, chest wall pain, GERD, esophageal rupture, rib fracture contusion, pleurisy, as well as other etiologies. Medical Records Attestation: I reviewed the patient's medical records. Lab Data Attestation: I reviewed the patient's lab results. Labs: Lab Results 03/15/24 03/15/24 Range/Units 13:00 13:03 WBC 9.14 (4.50-11.00) K/uL RBC 5.09 (4.30-5.90) m/uL Hgb 15.6 (13.5-17.5) gm/dL Hct 46.1 (37.0-53.0) % MCV 91 (80-100) fL MCH 31 (26-34) pg MCHC 34 (32-36) gm/dL RDW Coeff of Elkin 11.9 (11.5-15.5) % Plt Count 225 (140-440) K/uL Neut % (Auto) 72.3 H (42.0-72.0) % Lymph % (Auto) 16.0 L (20-44) % [place] % (Auto) 11.2 H (0.0-11.0) % Eos % (Auto) 0.3 (0.0-7.0) % Baso % (Auto) 0.1 (0.0-3.0) % Neut # (Auto) 6.60 (1.7-7.0) K/uL Lymph # (Auto) 1.50 (0.90-2.90) K/uL [place] # (Auto) 1.00 H (0.00-0.90) K/UL Eos # (Auto) 0.03 (0.00-0.50) K/uL Baso # (Auto) 0.01 (0.00-0.30) K/uL Abs Immat Gran (auto) 0.01 (0.00-0.30) K/uL Imm/Tot Granulo (auto) 0.1 % Sodium 135 (135-149) mmol/L Potassium 4.2 (3.6-5.1) mmol/L Chloride 99 (96-114) mmol/L Carbon Dioxide 27 (20-32) mmol/L Anion Gap 9 (7-15) mEq/L BUN 19 (7-30) mg/dL Creatinine 1.0 (0.5-1.5) mg/dL Estimated GFR 87 ml/min Glucose 69 (60-115) mg/dL Calcium 9.7 (8.4-10.6) mg/dL SARS-CoV-2 (PCR) Negative SARS-CoV-2 (Negative) Influenza Type A (PCR) Negative PCR FLU A (Negative) Influenza Type B (PCR) Negative PCR FLU B (Negative) RSV (PCR) Negative PCR RSV (Negative) POC Troponin I 0.00 L (0.01-0.04) ng/ml Imaging Data CT Chest/Ab/Pelvis: Attestation: I have reviewed the pertinent imaging results. My impression: Right-sided lower posterior PE, peripheral, no central PE. There appears to be in evidence of lung infarction also. With atelectasis, await radiologic over-read. ECG Data Attestation: I personally reviewed and interpreted this ECG as follows: ECG interpretation date: 03/15/24 Interpretation: EKG shows normal sinus rhythm with a ventricular rate of 82, QRS is normal, QT QTC are normal. No acute ST wave changes, no old EKG to compare to, assessment: Normal EKG Discharge Plan Discharge Clinical Impression: Pulmonary embolism and infarction, Deep vein thrombosis (DVT) Patient Disposition: Home w/ Parent or Adult Condition: Stable Instructions: Pulmonary Embolism (ED), Deep Vein Thrombosis (ED), LUIZ Hose (DC), Venous Thromboembolism (ED), Blood Thinners (ED), Deep Vein Thrombosis Prevention (ED) Additional Instructions: Home rest use of Eliquis, you should be on the 10 mg twice daily for a week, then switching to 5 mg twice daily. Follow-up with your primary care physician, and Hematology. Return here if increasing chest pain shortness of breath or other issues. Like I was telling you, shortness of breath, and overall weakness can last for months. Risk of bleeding is also something to watch out for, and avoidance of obviously ibuprofen with this. Small supply of narcotic medication given, for pain, be careful with these with alcohol, and also the risks of addiction associated with these. This is also very constipating so be warned. Activity Level: Light activity Discharge Diet: Regular Prescriptions: No Action magnesium glyconate 500 mg PO DAILY nitric oxide PO DAILY inositol 600 mg/600 mg (1/4 teaspoon) powder PO DAILY cetirizine [Zyrtec] 10 mg tablet 10 mg PO QDAY calm magnesium PO .hs Eliquis 5 mg tablet 5 mg PO BID Qty: 180 3RF propranolol 10 mg tablet 10 mg PO TID PRN (Reason: anxiety and elevated blood pressure) Qty: 90 3RF Follow Up/Referrals: Provider,Not a Local [Primary Care Provider] - Stand Alone Forms: [employer] Info Instructions
[2024-03-15] MEDS: 0.9 % SODIUM CHLORIDE 1000 ml 1,000 ML IV (13:22)
[2024-03-15 13:27] LABS: Chloride* 99 mmol/L (96-114); Potassium* 4.2 mmol/L (3.6-5.1); Sodium* 135 mmol/L (135-149)
[2024-03-15 13:30] LABS: Anion Gap 9 mEq/L (7-15); Blood Urea Nitrogen* 19 mg/dL (7-30); Carbon Dioxide* 27 mmol/L (20-32); Estimated Glomerular Filt Rate 87 ml/min; Glucose* 69 mg/dL (60-115)
[2024-03-15 13:31] LABS: Calcium* 9.7 mg/dL (8.4-10.6)
[2024-03-15 13:46] VITALS: PULSE 86; RESP 18; O2SAT 95
[2024-03-15 13:48] LABS: PCR FLU A Negative PCR FLU A (Negative); PCR FLU B Negative PCR FLU B (Negative); PCR RSV Negative PCR RSV (Negative); SARS PCR* Negative SARS-CoV-2 (Negative)
[2024-03-15 14:00] VITALS: PULSE 87; RESP 18; O2SAT 95
[2024-03-15 14:02] VITALS: BP 147/86; PULSE 88; RESP 18; O2SAT 95
[2024-03-15 14:15] VITALS: PULSE 89; RESP 18; O2SAT 96
== END 2024-03-15 15:11 | disposition home or self-care (01) ==
PROVIDERS: Emergency Provider Family Medicine
DX: I26.99 Other pulmonary embolism without acute cor pulmonale (principal); I82.501 Chronic embolism and thrombosis of unspecified deep veins of right lower extremity
CPT/HCPCS: 36415; 71275; 74177; 80048; 84484; 85025; 87631; 93005; 99284; 99285; J7030; Q9967

== ENCOUNTER 2024-03-25 10:46 | Outpatient (RCR) | payer OTHER, SELFPAY ==
--- NOTE | 2024-05-08 08:56 | ONC.NURNOTE ---
Addendum entered by Yanet Jean RN 05/15/24 14:48: Left message with patient to call with update on his questions after asking Dr. Ag: 1. Ok to take Tumeric with blood thinner 2. The only difference on a medical stand point between Eliquis and Xarelto is she likes the Eliquis because it is given twice a day vs once a day. But does state there is not really any difference Will let patient know when he returns phone call. Original Note: Patient call Mr. Winter called with the following updates and questions: - family members with same protein s factor are on xarelto with good . Mr. Winter is on eliquis and wonders if one drug is better than another. - He reports he is working with Dr. Dallas on the palpable area on his right calf with associated intermittent pain, no edema, negative for DVT or peripheral clot by US. Calf pain improves with compression sock. Left groin discomfort s/p DVT, no edema. Worse when seated for long periods. He also has intermittent pains in bilateral arms Plan to complete arteriogram and venogram on 05/19/24. conservative measures for stretching, epsom salt baths, turmeric to decrease inflammation Recheck of lipids after fasting - 2 of three children have been tested for hereditary genetic mutation - he plans to complete thrombophilia work up as directed by Dr. Ag prior to follow up in 5 months. - insurance questions I will share his update and question about xarelto versus eliquis with Dr. Ag. Requested that he update us after his venogram and arteriogram and continue to work with Dr. Dallas. Recommended for him to contact his insurance provider regarding coverage for providers/testing at [place] per his plan
--- NOTE | 2024-05-26 15:56 | ONC.NURNOTE ---
Pt's Angela stopped into [facility] with an update on Protein S Deficiency testing on their children. Their daughter tested normal range; their 17 y/o younger son tested positive for Protein S Deficiency. Their older son will be tested 06/03. Pt and asking if patient or kids need additional testing/workup prior to scheduled f/u in 4 months.
--- NOTE | 2024-09-03 15:12 | ONC.NURNOTE ---
Ager Operator called to scheduled a 6 month follow up with Dr. Ag, Gene stated that he is now being followed by [facility] in [place].
== END 2024-09-21 23:59 | disposition home or self-care (01) ==
LOC: CCIC 10:46
PROVIDERS: PCP Family Medicine; Visit Provider Internal Medicine Hematology & Oncology
DX: I82.442 Acute embolism and thrombosis of left tibial vein (principal); I26.99 Other pulmonary embolism without acute cor pulmonale; D68.59 Other primary thrombophilia; Z79.01 Long term (current) use of anticoagulants
CPT/HCPCS: 99202; 99205

== ENCOUNTER 2024-03-27 10:05 | Outpatient (CLI) | payer OTHER, SELFPAY ==
--- OUTSIDE RECORDS SUMMARY | 2024-03-27 10:08 | XMS_ITS | Clinical Summary ---
Author Organization [employer] [facility] [facility] Address [place], [place] [address] Care Team Providers Care Shoe Dyer Name Role Phone Family, Ellie San - [place] Primary Care Provider Unavailable Allergies No known active allergies Social History Tobacco Use Types Packs/Day Years Used Date Smoking Tobacco: Never Assessed Sex and Gender Information Value Date Recorded Sex Assigned at Not on file Gender Identity Not on file Sexual Orientation Not on file Last Filed Vital Signs Vital Sign Reading Time Taken Comments Blood Pressure 157/91 08/07/2022 6:39 PM CERTIFIED COMPOSITES TECHNICIAN Pulse 78 08/07/2022 6:39 PM CERTIFIED COMPOSITES TECHNICIAN Temperature 36.6 ??C (97.9 ??F) 08/07/2022 6:39 PM CS T Respiratory Rate 18 08/07/2022 6:39 PM CERTIFIED COMPOSITES TECHNICIAN Oxygen Saturation 99% 08/07/2022 6:39 PM CERTIFIED COMPOSITES TECHNICIAN Inhaled Oxygen Concentration - - Weight 81.6 kg (180 lb) 08/07/2022 6:39 PM CERTIFIED COMPOSITES TECHNICIAN Height 175.3 cm (5' 9) 08/07/2022 6:39 PM CERTIFIED COMPOSITES TECHNICIAN Body Mass Index 26.58 08/07/2022 6:39 PM CERTIFIED COMPOSITES TECHNICIAN Plan of Treatment Health Maintenance Due Date [...] season) 2023 08/19/2021 Influenza for age 50-64 04/13/2024 Pneumococcal series for age 6-64 Aged Out No longer eligible based on patient's age to complete this topic Care Teams Shoe Dyer Relationship Specialty Start Date End Date Ellie Garcia - [place] PCP - General Family Practice 08/07/22
--- OUTSIDE RECORDS SUMMARY | 2024-03-27 10:08 | XMS_ITS | Referral Summary ---
Author Organization [facility] Address [address] [place] [address] Care Team Providers Care Clinical Systems Analyst Name Role Phone [facility] Primary Care Provi gildardo Allergies No known [...] of Treatment Not on file Care Teams Clinical Systems Analyst Relationship Specialty Start Date End Date [address] [place] [address] PCP - General 10/28/18
--- OUTSIDE RECORDS SUMMARY | 2024-03-27 10:08 | XMS_ITS | Clinical Summary ---
Author Organization [facility] Address [address] [place] [address] Care Team Providers Care Home Assessment Nurse Name Role Phone [facility] Primary Care Provi gildardo Allergies No [...] of Treatment Not on file Care Teams Home Assessment Nurse Relationship Specialty Start Date End Date [address] [place] [address] PCP - General 10/28/18
--- OUTSIDE RECORDS SUMMARY | 2024-03-27 10:08 | XMS_ITS | Clinical Summary ---
Author Organization [facility] Address [address] [place] [address] Care Team Providers Care Correspondence Specialist Name Role Phone Rahul Sepulveda APRN, CNP Primary Care Provid er Source Comments You are receiving this document as you are listed as the primary care provider,follow-up provider, or the patient has been referred to you for consultation.This is in compliance with the Medicare and[facility] Hospital[facility] EHR Incentive Program,which states Providers who transition their patient to another setting of careor provider of care or refers their patient to another provider of care shouldprovide summary care record for each transition of care or referral. [facility] Allergies No known active allergies Medications Medication Sig Dispensed Refills Start Date End Date Status methylPREDNISolone (MEDROL 21 TABLET DOSEPACK) 4 MG tabletIndications:I njury of right foot, initial encounter Follow package directions 21 Tablet 08/15/2022 Active Active Problems No known active problems Immunizations Name Administration Dates Next Due Flu Vac Preserv Free (3+yrs) 07/27/2012,07/11/20 07 Influenza IIV4 (Quadrivalent) 0.5mL (82526) 02/2022,07/19/2020,08/08/2013 Influenza, Unspecified Formulation 07/02/2002 Moderna Monovalent [...] Comments Blood Pressure 130/74 07/21/2022 3:06 PM COMMISSIONING EDITOR Pulse 85 07/21/2022 3:06 PM COMMISSIONING EDITOR Temperature 36.2 ??C (97.2 ??F) 08/15/2022 8:09 AM CS T Respiratory Rate - - Oxygen Saturation 96% 07/21/2022 3:06 PM COMMISSIONING EDITOR Inhaled Oxygen Concentration - - Weight 80.3 kg (177 lb) 10/05/2023 7:34 AM COMMISSIONING EDITOR Height 175.3 cm (5' 9) 10/05/2023 7:34 AM COMMISSIONING EDITOR Body Mass Index 26.14 10/05/2023 7:34 AM COMMISSIONING EDITOR Plan of Treatment Health Maintenance Due Date [...] LDL (IF NEEDED) Routine 08/08/2013 11:29 AM COMMISSIONING EDITOR Screening for lipoid disorders from Last 3 Months or Most Recently Relevant to Health Maintenance Results * FIT Colon Rectal Cancer Screening (02/06/2022 7:20 AM CDT) FIT Specimen 1 Negative Negative 02/08/2022 8:54 AM CDT [facility] Stool Non-blood Collection / Unknown 02/06/2022 7:20 AM CDT 02/07/2022 9:21 PM CDT Ana Martini APRN, DNP LAB_1 Performing Organization Address City/State/[facility] Co de Phone Number [facility] [address] [phone] * (ABNORMAL) Lipid Panel and Direct LDL(If Needed) (08/08/2013 11:29 AM COMMISSIONING EDITOR) Cholesterol 222(H) 0 - 200 mg/dL HP CONVERSION Triglycerides 78 0 - 149 mg/dL HP CONVERSION HDL Cholesterol 50 >39 mg/dL HP CONVERSION Cholesterol/HDL Ratio Screen 4.4 HP CONVERSION LDL Calculated 156(H) 19 - 130 mg/dL HP CONVERSION Hours Fasting 12.0 HP CONVERSION 08/08/2013 11:2 9 AM COMMISSIONING EDITOR 08/08/2013 11:29 AM COMMISSIONING EDITOR Narrative HP CONVERSION - 08/08/2013 12:19 PM COMMISSIONING EDITOR Performed at [facility], [address] [facility], [place] [address] Marie Hess APRN, BRIAN LAB_1 HP CONVERSION from Last 3 Months or Most Recently Relevant to Health Maintenance Care Teams Correspondence Specialist Relationship Specialty Start Date End Date Rahul Sepulveda APRN, SOCIAL SERVICES SPECIALIST [address] [place] [id number] PCP - General 11/14/10
--- OUTSIDE RECORDS SUMMARY | 2024-03-27 10:09 | XMS_ITS | Encounter Summary ---
Author Organization [facility] Address [address] [address] Care Team Providers Care Buffer Nickel Name Role Phone Rahul Sepulveda APRN, FACILITIES ENGINEERING MANAGER Primary Care Provid er Encounter Details Date Type Department Care Team (Late st Contact Info) Description 01/26/2022 Lab Requisition Tre [phone] Ana Martini APRN, DNP [address] [facility] [address] [place] [address] Encounter for screening for malignant neoplasm of [...] 1 Negative Negative 02/08/2022 8:54 AM CDT [facility] Stool Non-blood Collection / Unknown 02/06/2022 7:20 AM CDT 02/07/2022 9:21 PM CDT Ana M Lianet FREEDMAN DNP LAB_1 Performing Organization Address [facility] de Phone Number [facility] [address] [place] [address] * [facility] FIT [facility]IT (01/27/2022 9:37 PM CDT) [facility] FIT [facility]IT SENT Yes 02/07/2022 9:21 PM CDT [facility] KIT RECEIVED Kit Received at [facility] 02/07/2022 9:21 PM CDT [facility] Stool Non-blood Collection / Unknown 01/27/2022 9:37 PM CDT 01/27/2022 9:38 PM CDT Ana Martini APRN, OPAL LAB_1 Performing Organization Address [facility] Phone Number [facility] [address] [place] [address] documented in this encounter Visit Diagnoses Diagnosis Encounter for screening for malignant neoplasm of colon Special screening for malignant neoplasms, colon documented in this encounter Care Teams Buffer Nickel Relationship Specialty Start Date End Date Rahul Sepulveda APRN, BRIAN [address] [place] [address] PCP - General 11/14/10 documented as of this encounter
== END 2024-03-27 10:06 | disposition home or self-care (01) ==
PROVIDERS: PCP Family Medicine; Visit Provider Family Medicine
DX: Z00.00 Encounter for general adult medical examination without abnormal findings (principal); R03.0 Elevated blood-pressure reading, without diagnosis of hypertension; I82.409 Acute embolism and thrombosis of unspecified deep veins of unspecified lower extremity; E11.9 Type 2 diabetes mellitus without complications; Z12.5 Encounter for screening for malignant neoplasm of prostate; Z13.6 Encounter for screening for cardiovascular disorders
CPT/HCPCS: 80053; 80061; 82043; 82570; G0103

== ENCOUNTER 2024-04-04 11:12 | Outpatient (CLI) | payer OTHER, SELFPAY ==
--- OUTSIDE RECORDS SUMMARY | 2024-04-04 11:13 | XMS_ITS | Clinical Summary ---
Author Organization [employer] [facility] [facility] Address [place], [place] [address] Care Team Providers Care Stenocaptioner Name Role Phone Family, Ellie San - [place] Primary Care Provider Unavailable Allergies No known active allergies Social History Tobacco Use Types Packs/Day Years Used Date Smoking Tobacco: Never Assessed Sex and Gender Information Value Date Recorded Sex Assigned at Not on file Gender Identity Not on file Sexual Orientation Not on file Last Filed Vital Signs Vital Sign Reading Time Taken Comments Blood Pressure 157/91 08/07/2022 6:39 PM GROUND SURVEILLANCE SYSTEMS OPERATOR Pulse 78 08/07/2022 6:39 PM GROUND SURVEILLANCE SYSTEMS OPERATOR Temperature 36.6 ??C (97.9 ??F) 08/07/2022 6:39 PM CS T Respiratory Rate 18 08/07/2022 6:39 PM GROUND SURVEILLANCE SYSTEMS OPERATOR Oxygen Saturation 99% 08/07/2022 6:39 PM GROUND SURVEILLANCE SYSTEMS OPERATOR Inhaled Oxygen Concentration - - Weight 81.6 kg (180 lb) 08/07/2022 6:39 PM GROUND SURVEILLANCE SYSTEMS OPERATOR Height 175.3 cm (5' 9) 08/07/2022 6:39 PM GROUND SURVEILLANCE SYSTEMS OPERATOR Body Mass Index 26.58 08/07/2022 6:39 PM GROUND SURVEILLANCE SYSTEMS OPERATOR Plan of Treatment Health Maintenance Due Date [...] age to complete this topic Care Teams Stenocaptioner Relationship Specialty Start Date End Date Ellie Garcia - [place] PCP - General Family Practice 08/07/22
--- OUTSIDE RECORDS SUMMARY | 2024-04-04 11:13 | XMS_ITS | Clinical Summary ---
Author Organization [facility] Address [address] [place] [address] Care Team Providers Care Oncologist Name Role Phone [facility] Provi gildardo Allergies No known [...] of Treatment Not on file Care Teams Oncologist Relationship Specialty Start Date End Date [address] [place] [address] PCP - General 10/28/18
--- OUTSIDE RECORDS SUMMARY | 2024-04-04 11:13 | XMS_ITS | Referral Summary ---
Author Organization [facility] Address [address] [place] [address] Care Team Providers Care Product Evangelist Name Role Phone [facility] Primary Care Provi gildardo Allergies No known [...] Treatment Not on file Care Teams Product Evangelist Relationship Specialty Start Date End Date [address] [place] [address] PCP - General 10/28/18
--- OUTSIDE RECORDS SUMMARY | 2024-04-04 11:14 | XMS_ITS | Encounter Summary ---
Author Organization [employer] Address [address] [address] Care Team Providers Care Manager Security Name Role Phone Rahul Sepulveda APRN, TANNER ROTARY DRUM CONTINUOUS PROCESS Primary Care Provid er Encounter Details Date Type Department Care Team (Late st Contact Info) Description 01/26/2022 Lab Requisition Tre [phone] Ana Martini APRN, DNP [address] [facility] [address] [place] [address] Encounter for screening for malignant neoplasm of [...] 1 Negative Negative 02/08/2022 8:54 AM CDT [facility] Stool Non-blood Collection / Unknown 02/06/2022 7:20 AM CDT 02/07/2022 9:21 PM CDT Ana M Lianet FREEDMAN DNP LAB_1 Performing Organization Address [facility] de Phone Number [facility] [address] [place] [address] * [facility] (01/27/2022 9:37 PM CDT) [facility] SENT Yes 02/07/2022 9:21 PM CDT [facility] K[facility] RECEIVED Kit Received at [facility] 02/07/2022 9:21 PM CDT [facility] Stool Non-blood Collection / Unknown 01/27/2022 9:37 PM CDT 01/27/2022 9:38 PM CDT Ana Martini APRN, OPAL LAB_1 Performing Organization Address [facility] Phone Number [facility] [address] [place] [address] documented in this encounter Visit Diagnoses Diagnosis Encounter for screening for malignant neoplasm of colon Special screening for malignant neoplasms, colon documented in this encounter Care Teams Manager Security Relationship Specialty Start Date End Date Rahul Sepulveda APRN, BRI[place] [address] [place] [address] PCP - General 11/14/10 documented as of this encounter
--- OUTSIDE RECORDS SUMMARY | 2024-04-04 11:14 | XMS_ITS | Clinical Summary ---
Author Organization [facility] Address [address] [place] [address] Care Team Providers Care Improvement Leader Name Role Phone Rahul Sepulveda APRN, CNP Primary Care Provid er Source Comments You are receiving this document as you are listed as the primary care provider,follow-up provider, or the patient has been referred to you for consultation.This is in compliance with the Medicare andThe [facility] Cent[facility] EHR Incentive Program,which states Providers who transition their patient to another setting of careor provider of care or refers their patient to another provider of care shouldprovide summary care record for each transition of care or referral. [facility] Allergies No known active allergies Medications Medication Sig Dispensed Refills Start Date End Date Status methylPREDNISolone (MEDROL 21 TABLET DOSEPACK) 4 MG tabletIndications:I njury of right foot, initial encounter Follow package directions 21 Tablet 08/15/2022 Active Active Problems No known active problems Immunizations Name Administration Dates Next Due Flu Vac Preserv Free (3+yrs) 07/27/2012,07/11/20 07 Influenza IIV4 (Quadrivalent) 0.5mL (61052) 02/2022,07/19/2020,08/08/2013 Influenza, Unspecified Formulation 07/02/2002 Moderna Monovalent [...] Comments Blood Pressure 130/74 07/21/2022 3:06 PM PIPE SMOKING MACHINE OPERATOR Pulse 85 07/21/2022 3:06 PM PIPE SMOKING MACHINE OPERATOR Temperature 36.2 ??C (97.2 ??F) 08/15/2022 8:09 AM CS T Respiratory Rate - - Oxygen Saturation 96% 07/21/2022 3:06 PM PIPE SMOKING MACHINE OPERATOR Inhaled Oxygen Concentration - - Weight 80.3 kg (177 lb) 10/05/2023 7:34 AM PIPE SMOKING MACHINE OPERATOR Height 175.3 cm (5' 9) 10/05/2023 7:34 AM PIPE SMOKING MACHINE OPERATOR Body Mass Index 26.14 10/05/2023 7:34 AM PIPE SMOKING MACHINE OPERATOR Plan of Treatment Health Maintenance Due Date Last Done Comments Diabetes Screening- (based on age and BMI) 1965 Hep C Screening (Preventive Services) 1965 MTM Covered 1965 PSA Screening Discussion 1965 HIV Screening (Preventive Services) 1981 Adult Preventive Visit 1983 HepB (1) 1984 Zoster/Shingles (1 of 2) 2015 DTaP/Tdap/Td (2 - Tdap) 08/08/2016 08/08/2006 Cholesterol 08/08/2018 08/08/2013, 07/13, 08/08/2006 FIT Colon Cancer Screening 02/06/2023 02/06/2022 COVID-19 Vaccine ( season) 2023 08/19/2021, 09/28/2020, 08/31/2020 Influenza (#1) 2024 08/19/2021, 1202/2020, 07/09/2019, Additional history exists HepA Aged Out [...] LDL (IF NEEDED) Routine 08/08/2013 11:29 AM PIPE SMOKING MACHINE OPERATOR Screening for lipoid disorders from Last 3 Months or Most Recently Relevant to Health Maintenance Results * FIT Colon Rectal Cancer Screening (02/06/2022 7:20 AM CDT) FIT Specimen 1 Negative Negative 02/08/2022 8:54 AM CDT [facility] Stool Non-blood Collection / Unknown 02/06/2022 7:20 AM CDT 02/07/2022 9:21 PM CDT Ana Martini APRN, OPAL LAB_1 Performing Organization Address City/State/[facility] Co de Phone Number [facility] [address] [phone] * (ABNORMAL) Lipid Panel and Direct LDL(If Needed) (08/08/2013 11:29 AM PIPE SMOKING MACHINE OPERATOR) Cholesterol 222(H) 0 - 200 mg/dL HP CONVERSION Triglycerides 78 0 - 149 mg/dL HP CONVERSION HDL Cholesterol 50 >39 mg/dL HP CONVERSION Cholesterol/HDL Ratio Screen 4.4 HP CONVERSION LDL Calculated 156(H) 19 - 130 mg/dL HP CONVERSION Hours Fasting 12.0 HP CONVERSION 08/08/2013 11:2 9 AM PIPE SMOKING MACHINE OPERATOR 08/08/2013 11:29 AM PIPE SMOKING MACHINE OPERATOR Narrative HP CONVERSION - 08/08/2013 12:19 PM PIPE SMOKING MACHINE OPERATOR Performed at [facility], [address] [place] [address] Marie Hess APRN, CNP LAB_1 HP CONVERSION from Last 3 Months or Most Recently Relevant to Health Maintenance Care Teams Improvement Leader Relationship Specialty Start Date End Date Rahul Sepulveda APRN, BRIAN [address] [place] [address] PCP - General 11/14/10
--- NOTE | 2024-04-04 12:00 | CRLHL7_ITS ---
For Patients: As a result of the Century Cures Act, medical imaging exams and procedure reports are released immediately into your electronic medical record. You may view this report before your referring provider. If you have questions, please contact your health care provider. INDICATION: hx of DVT and PE, Rt leg pain TECHNIQUE: Venous duplex ultrasound of the right lower extremity utilizing compression with mckeon-scale, color Doppler, and spectral Doppler imaging. COMPARISON: None FINDINGS: There is no sonographic evidence of deep vein thrombosis in the right common femoral, deep femoral, superficial femoral, popliteal, posterior tibial, peroneal, or contralateral common femoral veins. There is no visualized superficial vein thrombosis. The soft tissues are unremarkable. IMPRESSION: No deep vein thrombosis in the right lower extremity. Dictated by Morgan Jacobs MD @ 04/04/2024 12:47:21 PM (Electronically Signed)
== END 2024-04-04 11:13 | disposition home or self-care (01) ==
LOC: US 11:12
PROVIDERS: PCP Family Medicine; Visit Provider Family Medicine
DX: M79.604 Pain in right leg (principal); Z86.718 Personal history of other venous thrombosis and embolism
CPT/HCPCS: 93971

== ENCOUNTER 2024-05-19 13:02 | Outpatient (CLI) | payer OTHER, SELFPAY ==
--- OUTSIDE RECORDS SUMMARY | 2024-05-19 13:04 | XMS_ITS | Clinical Summary ---
Author Organization [employer] [facility] Address [place], [place] [address] Care Team Providers Care Cnc Manager Name Role Phone Janes Dallas MD Primary Care Provider [phone] Allergies No known active allergies Encounters Date Type Department Care Team Description 05/19/2024 9:26 AM CDT Hospital Encounter [facility] [address] [place] [address] Self, Referral Screening for cardiovascular condition 05/19/2024 Travel from Last 3 Months Social History Tobacco Use Types Packs/Day Years Used Date Smoking Tobacco: Never Assessed Sex and Gender Information Value Date Recorded Sex Assigned at Not on file Gender Identity Not on file Sexual Orientation Not on file Travel History Travel Start Travel End [place] 04/30/2024 05/04/2024 Last Filed Vital Signs Vital Sign Reading Time Taken Comments Blood Pressure 157/91 08/07/2022 6:39 PM LEAN LEADER Pulse 78 08/07/2022 6:39 PM LEAN LEADER Temperature 36.6 ??C (97.9 ??F) 08/07/2022 6:39 PM CS T Respiratory Rate 18 08/07/2022 6:39 PM LEAN LEADER Oxygen Saturation 99% 08/07/2022 6:39 PM LEAN LEADER Inhaled Oxygen Concentration - - Weight 81.6 kg (180 lb) 08/07/2022 6:39 PM LEAN LEADER Height 175.3 cm (5' 9) 08/07/2022 6:39 PM LEAN LEADER Body Mass Index 26.58 08/07/2022 6:39 PM LEAN LEADER Plan of Treatment Upcoming Encounters Date Type Department Care Team (Late st Contact Info) Description 05/19/2024 1:45 PM CDT Orders Only [facility] [place] [facility] [address] [place] [address] Arrived Health Maintenance Due Date Last Done Comments [...] (1 of 2) 2015 COVID-19 vaccine series (2 - 2023- season) 2024 08/19/2021 Influenza for age 50-64 04/13/2024 Pneumococcal series for age 6-64 Aged Out No longer eligible based on patient's age to complete this topic Care Teams Cnc Manager Relationship Specialty Start Date End Date Janes Dallas MD [address] [place] [address] PCP - General Family Practice 05/16/24
--- OUTSIDE RECORDS SUMMARY | 2024-05-19 13:04 | XMS_ITS | Clinical Summary ---
Author Organization [facility] Address [address] [place] [address] Care Team Providers Care Medical Aide Name Role Phone [facility] Primary Care Provi gildardo Allergies [...] of Treatment Not on file Care Teams Medical Aide Relationship Specialty Start Date End Date [address] [place] [address] PCP - General 10/28/18
--- OUTSIDE RECORDS SUMMARY | 2024-05-19 13:04 | XMS_ITS | Referral Summary ---
Author Organization [facility] Address [address] [place] [address] Care Team Providers Care Landscaper Helper Name Role Phone [facility] Primary Care Provi gildardo Allergies No known [...] of Treatment Not on file Care Teams Landscaper Helper Relationship Specialty Start Date End Date [address] [place] [address] PCP - General 10/28/18
--- OUTSIDE RECORDS SUMMARY | 2024-05-19 13:05 | XMS_ITS | Encounter Summary ---
Author Organization [employer] Address [address], [place] [address] Care Team Providers Care Sustainable Development Policy Analyst Name Role Phone Rahul Sepulveda APRN, BOTTOM MAN Primary Care Provid er Encounter Details Date Type Department Care Team (Late st Contact Info) Description 01/26/2022 Lab Requisition Tre [phone] Ana Martini APRN, DNP [address] [facility] [address] [place] [address] Encounter for screening for malignant neoplasm of [...] 1 Negative Negative 02/08/2022 8:54 AM CDT [facility] Stool Non-blood Collection / Unknown 02/06/2022 7:20 AM CDT 02/07/2022 9:21 PM CDT Ana M Lianet FREEDMAN DNP LAB_1 Performing Organization Address [facility] de Phone Number [facility] [address] [place] [address] * [facility]IT (01/27/2022 9:37 PM CDT) [facility] FIT K[facility] SENT Yes 02/07/2022 9:21 PM CDT [facility] K[facility] RECEIVED Kit Received at [facility] 02/07/2022 9:21 PM CDT [facility] Stool Non-blood Collection / Unknown 01/27/2022 9:37 PM CDT 01/27/2022 9:38 PM CDT Ana Martini APRN, OPAL LAB_1 Performing Organization Address [facility] Phone Number [facility] [address] [place] [address] documented in this encounter Visit Diagnoses Diagnosis Encounter for screening for malignant neoplasm of colon Special screening for malignant neoplasms, colon documented in this encounter Care Teams Sustainable Development Policy Analyst Relationship Specialty Start Date End Date Rahul Sepulveda APRN, BRIAN [address] [place] [address] PCP - General 11/14/10 documented as of this encounter
--- OUTSIDE RECORDS SUMMARY | 2024-05-19 13:05 | XMS_ITS | Clinical Summary ---
Author Organization [facility] Address [address] [place] [address] Care Team Providers Care Chief Mate Name Role Phone Rahul Sepulveda APRN, CNP Primary Care Provid er Source Comments You are receiving this document as you are listed as the primary care provider,follow-up provider, or the patient has been referred to you for consultation.This is in compliance with the Medicare andBar[facility] Citizens Hospitalcaid EHR Incentive Program,which states Providers who transition their patient to another setting of careor provider of care or refers their patient to another provider of care shouldprovide summary care record for each transition of care or referral. [facility] Allergies No known active allergies Medications Medication Sig Dispensed Refills Start Date End Date Status methylPREDNISolone (MEDROL 21 TABLET DOSEPACK) 4 MG tabletIndications:I njury of right foot, initial encounter Follow package directions 21 Tablet 08/15/2022 Active Active Problems No known active problems Immunizations Name Administration Dates Next Due Flu Vac Preserv Free (3+yrs) 07/27/2012,07/11/20 07 Influenza IIV4 (Quadrivalent) 0.5mL (03028) 02/2022,07/19/2020,08/08/2013 Influenza, Unspecified Formulation 07/02/2002 Moderna Monovalent [...] Comments Blood Pressure 130/74 07/21/2022 3:06 PM SINGLE RESOURCE BOSS Pulse 85 07/21/2022 3:06 PM SINGLE RESOURCE BOSS Temperature 36.2 ??C (97.2 ??F) 08/15/2022 8:09 AM CS T Respiratory Rate - - Oxygen Saturation 96% 07/21/2022 3:06 PM SINGLE RESOURCE BOSS Inhaled Oxygen Concentration - - Weight 80.3 kg (177 lb) 10/05/2023 7:34 AM SINGLE RESOURCE BOSS Height 175.3 cm (5' 9) 10/05/2023 7:34 AM SINGLE RESOURCE BOSS Body Mass Index 26.14 10/05/2023 7:34 AM SINGLE RESOURCE BOSS Plan of Treatment Health Maintenance Due Date [...] Screening 02/06/2023 02/06/2022 COVID-19 Vaccine ( season) 2024 08/19/2021, 09/28/2020, 08/31/2020 Influenza (#1) 2024 08/19/2021, 02/2020, 07/09/2019, Additional history exists HepA Aged Out No longer eligi ble based on patient's age to complete this topic Hib Aged Out No longer eligi ble based on patient's age to complete this topic IPV (Polio) Aged Out No longer eligi ble based on patient's age to complete this topic RSV Aged Out No longer eligi ble based [...] LDL (IF NEEDED) Routine 08/08/2013 11:29 AM SINGLE RESOURCE BOSS Screening for lipoid disorders from Last 3 Months or Most Recently Relevant to Health Maintenance Results * FIT Colon Rectal Cancer Screening (02/06/2022 7:20 AM CDT) FIT Specimen 1 Negative Negative 02/08/2022 8:54 AM CDT [facility] Stool Non-blood Collection / Unknown 02/06/2022 7:20 AM CDT 02/07/2022 9:21 PM CDT Ana Martini APRN, OPAL LAB_1 [facility] [address] [phone] * (ABNORMAL) Lipid Panel and Direct LDL(If Needed) (08/08/2013 11:29 AM SINGLE RESOURCE BOSS) Cholesterol 222(H) 0 - 200 mg/dL HP CONVERSION Triglycerides 78 0 - 149 mg/dL HP CONVERSION HDL Cholesterol 50 >39 mg/dL HP CONVERSION Cholesterol/HDL Ratio Screen 4.4 HP CONVERSION LDL Calculated 156(H) 19 - 130 mg/dL HP CONVERSION Hours Fasting 12.0 HP CONVERSION 08/08/2013 11:2 9 AM SINGLE RESOURCE BOSS 08/08/2013 11:29 AM SINGLE RESOURCE BOSS Narrative HP CONVERSION - 08/08/2013 12:19 PM SINGLE RESOURCE BOSS Performed at [facility], [address] [place] [address] Marie Hess APRN, CNP LAB_1 HP CONVERSION from Last 3 Months or Most Recently Relevant to Health Maintenance Care Teams Chief Mate Relationship Specialty Start Date End Date Rahul Sepulveda, BRIAN FREEDMAN [address] [place] [address] PCP - General 11/14/10
== END 2024-05-19 13:03 | disposition home or self-care (01) ==
LOC: US 13:02
PROVIDERS: PCP Family Medicine; Visit Provider Family Medicine
DX: M79.604 Pain in right leg (principal); I87.2 Venous insufficiency (chronic) (peripheral); M79.605 Pain in left leg; I82.409 Acute embolism and thrombosis of unspecified deep veins of unspecified lower extremity
CPT/HCPCS: 93922; 93970

== ENCOUNTER 2024-06-20 11:19 | Outpatient (CLI) | payer OTHER, SELFPAY ==
--- OUTSIDE RECORDS SUMMARY | 2024-06-20 11:22 | XMS_ITS | Referral Summary ---
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
--- OUTSIDE RECORDS SUMMARY | 2024-06-20 11:22 | XMS_ITS | Clinical Summary ---
Author Organization [facility] Address [address] [place] [address] Care Team Providers Care Flight Information Expediter Name Role Phone 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, [address] [id number] PCP - General 10/28/18
--- OUTSIDE RECORDS SUMMARY | 2024-06-20 11:22 | XMS_ITS | Clinical Summary ---
Author Organization [employer] [facility] [employer] Address [place], [place] [address] Care Team Providers Care Learning Support Services Director Name Role Phone Mamie Dallas MD Primary Care Provider [phone] Allergies No known active allergies Encounters Date Type Department Care Team Description 05/19/2024 1:45 PM CDT Orders Only [facility] [address] [place] [address] 2 scans: (2-Ord) US VENOUS INSUFFICIENCY LOWER EXTREMITY BILATERAL ([id number]) 05/19/2024 1:00 PM CDT Ancillary Procedure [facility] [address] [place] [address] 05/19/2024 9:26 AM CDT - 05/19/2024 11:59 PM CDT Hospital Encounter [facility] [address] [place] [address] Self, Referral Screening for cardiovascular condition 05/19/2024 [...] Comments Blood Pressure 157/91 08/07/2022 6:39 PM NEEDLEWORKER Pulse 78 08/07/2022 6:39 PM NEEDLEWORKER Temperature 36.6 ??C (97.9 ??F) 08/07/2022 6:39 PM CS T Respiratory Rate 18 08/07/2022 6:39 PM NEEDLEWORKER Oxygen Saturation 99% 08/07/2022 6:39 PM NEEDLEWORKER Inhaled Oxygen Concentration - - Weight 81.6 kg (180 lb) 08/07/2022 6:39 PM NEEDLEWORKER Height 175.3 cm (5' 9) 08/07/2022 6:39 PM NEEDLEWORKER Body Mass Index 26.58 08/07/2022 6:39 PM NEEDLEWORKER Plan of Treatment Health Maintenance Due Date [...] of 2) 2015 COVID-19 vaccine series ( - 2023- season) 2024 08/19/2021 Influenza for age 50-64 04/13/2024 Pneumococcal series for age 6-64 Aged Out No longer eligible based on patient's age to complete this topic Procedures Procedure Name Priority Date/Time Associated Diagnosis Comments US VENOUS INSUFFICIENCY LOWER EXTREMITY BILATERAL Routine 05/19/2024 2:40 PM CDT Pain in right leg US ANKLE BRACHIAL INDEX BILATERAL Routine 05/19/2024 2:40 PM CDT Pain in right leg CT CARDIAC CALCIUM SCORE ONLY WO SINGLE READ Routine 05/19/2024 9:46 AM CDT Screening for cardiovascular condition from Last 3 Months Results * US VENOUS INSUFFICIENCY LOWER EXTREMITY BILATERAL (05/19/2024 2:40 PM CDT) Anatomical Region Laterality Modality LEGS Ultrasound 05/19/2024 12:4 1 PM CDT Narrative 05/19/2024 4:56 PM CDT VASCULAR ULTRASOUND REPORT GIO WINTER Accession#: ?? [id number] : ?1965 ??Study Date: ?? 05/19/2024 12:41:50 PM Age: ?59 years ?? Tech: ? PMK Gender: M ?Referring MD: [id number] MAMIE DALLAS Site: [facility] Study performed: ?Duplex US venous insufficiency, (bilateral). Indication for study: LE pain/edema Study Quality: ?Good TECHNIQUE: Lower/upper extremity veins were examined with duplex ultrasound, color-flow and spectral Doppler per exam protocol. Vein compressibility by transducer pressure was used to evaluate presence/absence of DVT/SVT. Venous flow and competence was evaluated by flow augmentation maneuvers per exam protocol. Insufficiency studies were performed with the patient in upright position, with vein diameters measured in mm, and reflux. IMPRESSION: 1. No evidence of deep vein thrombosis in the right and left lower extremity. 2. No evidence of deep venous insufficiency in the right and left lower extremity. 3. Superficial venous insufficiency was noted in the right greater saphenous vein at upper calf. 4. The right greater saphenous vein and small saphenous vein are patent and compressible. 5. Superficial venous insufficiency was noted in the left greater saphenous vein at distal thigh. 6. The left greater saphenous vein and small saphenous vein are patent and compressible. COMPARISON: No prior study available for comparison. FINDINGS: Right Lower Extremity: No deep venous insufficiency. No evidence of DVT. Left Lower Extremity: No deep venous insufficiency. No evidence of DVT. MEASUREMENTS: + +--------+----+--------+------+ RIGHT ? Compress SVT Diameter Reflux ?(mm) ?? (secs) + +--------+----+--------+------+ SFJ ? yes ? None ??8.5 ?? 0.0 ?? + +--------+----+--------+------+ GSV THIGH PRX yes ? None ??3.4 ?? 0.0 ?? + +--------+----+--------+------+ GSV THIGH MID yes ? None ??4.2 ?? 0.0 ?? + +--------+----+--------+------+ GSV THIGH DST yes ? None ??3.4 ?? 0.0 ?? + +--------+----+--------+------+ GSV KNEE ? yes ? None ??2.7 ?? 0.0 ?? + +--------+----+--------+------+ GSV CALF UPPER yes ? None ??2.6 ?? 0.9 ?? + +--------+----+--------+------+ GSV CALF MID ?? yes ? None ??2.2 ?? 0.0 ?? + +--------+----+--------+------+ GSV CALF LOW ?? yes ? None ??3.6 ?? 0.0 ?? + +--------+----+--------+------+ SSV KNEE/SPJ ?? yes ? None ??4.2 ?? 0.0 ?? + +--------+----+--------+------+ SSV CALF PRX ?? yes ? None ??3.4 ?? 0.0 ?? + +--------+----+--------+------+ SSV CALF MID ?? yes ? None ??2.6 ?? 0.0 ?? + +--------+----+--------+------+ SSV CALF DST ?? yes ? None ??2.2 ?? 0.0 ?? + +--------+----+--------+------+ + +--------+----+ +------+ LEFT ? Compress SVT Diameter (mm) Reflux ? (secs) + +--------+----+ +------+ SFJ ? yes ? None ? 7.5 ? 0.0 ?? + +--------+----+ +------+ GSV THIGH PRX yes ? None ? 4.8 ? 0.0 ?? + +--------+----+ +------+ GSV THIGH MID yes ? None ? 4.0 ? 0.0 ?? + +--------+----+ +------+ GSV THIGH DST yes ? None ? 3.8 ? 0.6 ?? + +--------+----+ +------+ GSV KNEE ? yes ? None ? 3.4 ? 0.0 ?? + +--------+----+ +------+ GSV CALF UPPER yes ? None ? 3.3 ? 0.0 ?? + +--------+----+ +------+ GSV CALF MID ?? yes ? None ? 1.6 ? 0.0 ?? + +--------+----+ +------+ GSV CALF LOW ?? yes ? None ? 2.2 ? 0.0 ?? + +--------+----+ +------+ SSV KNEE/SPJ ?? yes ? None ? 3.9 ? 0.0 ?? + +--------+----+ +------+ SSV CALF PRX ?? yes ? None ? 3.1 ? 0.0 ?? + +--------+----+ +------+ SSV CALF MID ?? yes ? None ? 3.1 ? 0.0 ?? + +--------+----+ +------+ SSV CALF DST ?? yes ? None ? 2.8 ? 0.0 ?? + +--------+----+ +------+ can't evaluate DEEP SYSTEM +----+--------+-----+--------+----+ ? RIGHT ?? RIGHT LEFT ? LEFT ? Compress DVT ?? Compress DVT +----+--------+-----+--------+----+ CFV yes ? None yes ? None +----+--------+-----+--------+----+ PFV yes ? None yes ? None +----+--------+-----+--------+----+ FV ?? yes ? None yes ? None +----+--------+-----+--------+----+ POPV yes ? None yes ? None +----+--------+-----+--------+----+ can't evaluate Ricardo Odonnell MD. Electronically signed on 05/19/2024 4:56:29 PM CC: HIM (medical records) [facility] This study was performed and interpreted by a service accredited by the Intersocietal Accreditation Commission (IAC/Vascular), [email or web address] Report generated by [employer]. ??Final ?? Procedure Note Ricardo Odonnell MD - 05/19/2024 VASCULAR ULTRASOUND REPORT GIO WITNER : 1965 Study Date: 05/19/2024 12:41:50 PM Age: 59 years Tech: PMK Gender: M Referring MD: [id number] MAMIE DALLAS Site: [facility] Study performed: Duplex US venous insufficiency, (bilateral). Indication for study: LE pain/edema Study Quality: Good TECHNIQUE: Lower/upper extremity veins were examined with duplex ultrasound,color-flow and spectral Doppler per exam protocol. Vein compressibility bytransducer pressure was used to evaluate presence/absence of DVT/SVT.Venous flow and competence was evaluated by flow augmentation maneuversper exam protocol. Insufficiency studies were performed with the patientin upright position, with vein diameters measured in mm, and reflux. IMPRESSION: 1. No evidence of deep vein thrombosis in the right and left lowerextremity. 2. No evidence of deep venous insufficiency in the right and left lowerextremity. 3. Superficial venous insufficiency was noted in the right greatersaphenous vein at upper calf. 4. The right greater saphenous vein and small saphenous vein are patentand compressible. 5. Superficial venous insufficiency was noted in the left greatersaphenous vein at distal thigh. 6. The left greater saphenous vein and small saphenous vein are patentand compressible. COMPARISON: No prior study available for comparison. FINDINGS: Right Lower Extremity: No deep venous insufficiency. No evidence of DVT. Left Lower Extremity: No deep venous insufficiency. No evidence of DVT. MEASUREMENTS: + +--------+----+--------+------+ RIGHT Compress SVT Diameter Reflux (mm) (secs) + +--------+----+--------+------+ SFJ yes None 8.5 0.0 + +--------+----+--------+------+ GSV THIGH PRX yes None 3.4 0.0 + +--------+----+--------+------+ GSV THIGH MID yes None 4.2 0.0 + +--------+----+--------+------+ GSV THIGH DST yes None 3.4 0.0 + +--------+----+--------+------+ GSV KNEE yes None 2.7 0.0 + +--------+----+--------+------+ GSV CALF UPPER yes None 2.6 0.9 + +--------+----+--------+------+ GSV CALF MID yes None 2.2 0.0 + +--------+----+--------+------+ GSV CALF LOW yes None 3.6 0.0 + +--------+----+--------+------+ SSV KNEE/SPJ yes None 4.2 0.0 + +--------+----+--------+------+ SSV CALF PRX yes None 3.4 0.0 + +--------+----+--------+------+ SSV CALF MID yes None 2.6 0.0 + +--------+----+--------+------+ SSV CALF DST yes None 2.2 0.0 + +--------+----+--------+------+ + +--------+----+ +------+ LEFT Compress SVT Diameter (mm) Reflux (secs) + +--------+----+ +------+ SFJ yes None 7.5 0.0 + +--------+----+ +------+ GSV THIGH PRX yes None 4.8 0.0 + +--------+----+ +------+ GSV THIGH MID yes None 4.0 0.0 + +--------+----+ +------+ GSV THIGH DST yes None 3.8 0.6 + +--------+----+ +------+ GSV KNEE yes None 3.4 0.0 + +--------+----+ +------+ GSV CALF UPPER yes None 3.3 0.0 + +--------+----+ +------+ GSV CALF MID yes None 1.6 0.0 + +--------+----+ +------+ GSV CALF LOW yes None 2.2 0.0 + +--------+----+ +------+ SSV KNEE/SPJ yes None 3.9 0.0 + +--------+----+ +------+ SSV CALF PRX yes None 3.1 0.0 + +--------+----+ +------+ SSV CALF MID yes None 3.1 0.0 + +--------+----+ +------+ SSV CALF DST yes None 2.8 0.0 + +--------+----+ +------+ can't evaluate DEEP SYSTEM +----+--------+-----+--------+----+ RIGHT RIGHT LEFT LEFT Compress DVT Compress DVT +----+--------+-----+--------+----+ CFV yes None yes None +----+--------+-----+--------+----+ PFV yes None yes None +----+--------+-----+--------+----+ FV yes None yes None +----+--------+-----+--------+----+ POPV yes None yes None +----+--------+-----+--------+----+ can't evaluate Ricardo Odonnell MD. Electronically signed on 05/19/2024 4:56:29 PM CC: HIM (medical records) [facility] This study was performed and interpreted by a service accredited by theIntersocietal Accreditation Commission (IAC/Vascular),[email or web address] Report generated by [employer]. Final Mamie Dallas MD US * US ANKLE BRACHIAL INDEX BILATERAL (05/19/2024 2:40 PM CDT) Anatomical Region Laterality Modality ANKLES, ANKLE L, ANKLE R Ultraso und 05/19/2024 1:54 PM CDT Narrative 05/19/2024 4:57 PM CDT VASCULAR ULTRASOUND REPORT GIO WINTER Accession#: ?? [id number] : ?1965 ??Study Date: ?? 05/19/2024 1:54:32 PM Age: ?59 years ?? Tech: ? PMK Gender: M ?Referring MD: MAMIE DALLAS Site: [facility] Study performed: ?Lower extremity resting JITENDRA, (bilateral). Indication for study: LE pain/numbness Study Quality: ?Good TECHNIQUE: Lower/upper extremity arteries were examined per exam protocol by duplex ultrasound, color-flow and spectral Doppler. Peak systolic velocities (PSV), Doppler waveform quality, velocity ratios and vessel size in cm, were documented at protocol specific sites. Physiologic data including segmental pressures, ankle/brachial index (JITENDRA), digit PPG recordings, laser Doppler flowmetry, transcutaneous oximetry, and digit temperatures were documented at sites per exam protocol and test requirements. IMPRESSION: 1. Resting ankle-brachial index is normal on the right at 1.26 and is normal on the left at 1.33. COMPARISON: No prior study available for comparison. FINDINGS: +--------+ + + RIGHT ?? Velocity cm/s Phasicity ?? +--------+ + + RN MEDICAL SURGICAL DST ? 68 ? multiphasic +--------+ + + MATILDA DST ? 43 ? multiphasic +--------+ + + DPA ? 50 ? multiphasic +--------+ + + +--------+ + + LEFT ? Velocity cm/s Phasicity ?? +--------+ + + RN MEDICAL SURGICAL DST ? 57 ? multiphasic +--------+ + + MATILDA DST ? 49 ? multiphasic +--------+ + + DPA ? 54 ? multiphasic +--------+ + + Criteria: Stenosis ?V. Ratio Mild ?<50% ?<2.0 Moderate ?? 50-74% ?> or = 2.0 Severe ? 75-99% ?> or = 4.0 Occluded ?100% ?? no detectable flow Pressures +-----+ +--------+ +-----+ ? RIGHT (mmHg) ? LEFT (mmHg) ? +-----+ +--------+ +-----+ Index ?133 ? Brachial ?126 ? Index +-----+ +--------+ +-----+ 1.26 ?168 ?RN MEDICAL SURGICAL ?177 ? 1.33 +-----+ +--------+ +-----+ 1.14 ?152 ?DPA ?172 ? 1.29 +-----+ +--------+ +-----+ Ricardo Odonnell MD. Electronically signed on 05/19/2024 4:57:52 PM CC: HIM (medical records) [facility] This study was performed and interpreted by a service accredited by the Intersocietal Accreditation Commission (IAC/Vascular), [email or web address] Report generated by [employer]. ??Final ?? Procedure Note Ricardo Odonnell MD - 05/19/2024 VASCULAR ULTRASOUND REPORT GIO WINTER : 1965 Study Date: 05/19/2024 1:54:32 PM Age: 59 years Tech: PMK Gender: M Referring MD: MAMIE DALLAS Site: [facility] Study performed: Lower extremity resting JITENDRA, (bilateral). Indication for study: LE pain/numbness Study Quality: Good TECHNIQUE: Lower/upper extremity arteries were examined per exam protocol by duplexultrasound, color-flow and spectral Doppler. Peak systolic velocities(PSV), Doppler waveform quality, velocity ratios and vessel size in cm,were documented at protocol specific sites. Physiologic data includingsegmental pressures, ankle/brachial index (JITENDRA), digit PPG recordings,laser Doppler flowmetry, transcutaneous oximetry, and digit temperatureswere documented at sites per exam protocol and test requirements. IMPRESSION: 1. Resting ankle-brachial index is normal on the right at 1.26 and isnormal on the left at 1.33. COMPARISON: No prior study available for comparison. FINDINGS: +--------+ + + RIGHT Velocity cm/s Phasicity +--------+ + + RN MEDICAL SURGICAL DST 68 multiphasic +--------+ + + MATILDA DST 43 multiphasic +--------+ + + DPA 50 multiphasic +--------+ + + +--------+ + + LEFT Velocity cm/s Phasicity +--------+ + + RN MEDICAL SURGICAL DST 57 multiphasic +--------+ + + MATILDA DST 49 multiphasic +--------+ + + DPA 54 multiphasic +--------+ + + Criteria: Stenosis V. Ratio Mild <50% <2.0 Moderate 50-74% > or = 2.0 Severe 75-99% > or = 4.0 Occluded 100% no detectable flow Pressures +-----+ +--------+ +-----+ RIGHT (mmHg) LEFT (mmHg) +-----+ +--------+ +-----+ Index 133 Brachial 126 Index +-----+ +--------+ +-----+ 1.26 168 RN MEDICAL SURGICAL 177 1.33 +-----+ +--------+ +-----+ 1.14 152 DPA 172 1.29 +-----+ +--------+ +-----+ Ricardo Odonnell MD. Electronically signed on 05/19/2024 4:57:52 PM CC: HIM (medical records) [facility] This study was performed and interpreted by a service accredited by theIntersocietal Accreditation Commission (IAC/Vascular),[email or web address] Report generated by [employer]. Final Mamie Dallas MD US * CT CARDIAC CALCIUM SCORE ONLY WO SINGLE READ (05/19/2024 9:46 AM CDT) Anatomical Region Laterality Modality Computed Tomogra phy 05/19/2024 4:19 PM CDT Impressions 05/19/2024 4:19 PM CDT 1. Coronary calcium score of 2 which is at the 34th percentile. 2. Two incidental left lung pulmonary nodules. Correlation with smoking history is suggested. Consider 6-[address] chest follow-up to determine stability of these incidental nodules. Please note that all CT scans at this facility use dose modulation, iterative reconstruction, and/or weight-based dosing when appropriate to reduce radiation dose to as low as reasonably achievable. Dictated by Ulisses Montesinos MD @ 05/19/2024 4:19:09 PM (Electronically Signed) Narrative 05/19/2024 4:19 PM CDT For Patients: ??As a result of the Century Cures Act, medical imaging exams and procedure reports are released immediately into your electronic medical record. ??You may view this report before your referring provider. ??If you have questions, please contact your health care provider. CT CARDIAC CALCIUM SCORING PATIENT HISTORY: ??Screening for cardiovascular condition. REPORT: ??High-resolution, ECG-synchronized noncontrast computed tomography of the heart with attention to the coronary arteries was performed. ?? Coronary calcification analyzed using Siemens calcium scoring software. These are the results of the evaluation: CT Calcium Scoring: ??This cardiac CT examination will provide you with a coronary artery calcium score. A coronary artery calcium score is a measurement of the amount of calcified plaque in the coronary arteries, the arteries that supply blood to the heart muscle. The coronary artery calcium score is calculated based on the number, size, and density of the calcified plaques in the coronary arteries. The amount of calcified coronary plaque has been shown to directly correlate with future risk for heart disease. The coronary artery calcium is a marker of how much plaque has accumulated in the zhou of the coronary arteries. It is not a test for blockages. This test is intended to assess cardiovascular risk in patients without symptoms. It is not intended to be a test for individuals with chest pain or other possible symptoms suggestive of heart disease. If you are having chest pain or other potential cardiovascular symptoms, see your physician. Calcium Score: Left main = 0 Left anterior descending = 0 Left circumflex = 0 Right coronary artery = 2 Total calcium score = 2 [address] the patient at the 34th percentile for matched age and gender. Calcified Plaque Seen Assessment: - Your cardiac CT examination demonstrates plaque in the coronary arteries. - The amount of plaque in the coronary arteries directly correlates with the risk for heart attack and other coronary events (such as bypass or stenting). - As discussed above, the coronary artery calcium score is intended for risk assessment in patients without cardiovascular symptoms. If you are having chest pain or other potential cardiovascular symptoms, see your physician. Recommendations: - To lower your cardiovascular risk, we strongly recommend adherence to healthy lifestyle behaviors including: - Following a heart healthy diet focused on modest ??portion sizes, a high intake of fresh fruits and vegetables, whole grains, healthy fats (olive oil, nuts and seeds, avocados), and healthy proteins (unprocessed meats, fish, legumes). - Following an active lifestyle including 30-45 minutes of moderate intensity exercise 5-6 times per week. - Avoidance of tobacco products. - Cardiovascular preventive medication, including a daily aspirin and cholesterol-lowering statin medications have been shown to reduce the risk of a future heart attack and stroke, especially in individuals at higher risk for heart disease. - We recommend that individuals with calcified plaque discuss the risks and benefits of cholesterol-lowering medications, blood pressure medications, and aspirin with their primary care physician. Cholesterol-lowering medications have been shown to reduce the risk of heart attack in individuals at elevated risk, including in patients with ? normal? cholesterol levels at baseline. - A coronary artery calcium score is not a test for blockages, it is a test for underlying plaque. An elevated calcium score is not an indication for additional testing for coronary heart disease though one may be considered based on your clinical history. The results of your coronary artery calcium score should be reviewed by your primary care provider or technical stenographer. - These recommendations are generalized and may not specifically apply to you as an individual. Your primary care physician is in the best position to provide advice on your care and clinical decisions should ultimately be made by you and your physician. EXTRA-CARDIAC FINDINGS: Incidental 5 mm left upper lobe pulmonary nodule image number 1 of series 3. 6 mm subpleural nodule within the lingula on image number 25 series 3. Procedure Note Ulisses Montesinos MD - 05/19/2024 For Patients: As a result of the Cures Act, medical imagingexams and procedure reports are released immediately into your electronicmedical record. You may view this report before your referring provider.If you have questions, please contact your health care provider. CT CARDIAC CALCIUM SCORING PATIENT HISTORY: Screening for cardiovascular condition. REPORT: High-resolution, ECG-synchronized noncontrast computed tomographyof the heart with attention to the coronary arteries was performed. Coronary calcification analyzed using Siemens calcium scoring software.These are the results of the evaluation: CT Calcium Scoring: This cardiac CT examination will provide you with acoronary artery calcium score. A coronary artery calcium score is ameasurement of the amount of calcified plaque in the coronary arteries,the arteries that supply blood to the heart muscle. The coronary arterycalcium score is calculated based on the number, size, and density of thecalcified plaques in the coronary arteries. The amount of calcifiedcoronary plaque has been shown to directly correlate with future risk forheart disease. The coronary artery calcium is a marker of how much plaque has accumulatedin the zhou of the coronary arteries. It is not a test for blockages.This test is intended to assess cardiovascular risk in patients withoutsymptoms. It is not intended to be a test for individuals with chest painor other possible symptoms suggestive of heart disease. If you are havingchest pain or other potential cardiovascular symptoms, see yourphysician. Calcium Score: Left main = 0 Left anterior descending = 0 Left circumflex = 0 Right coronary artery = 2 Total calcium score = 2 This places the patient at the 34th percentile for matched age andgender. Calcified Plaque Seen Assessment: - Your cardiac CT examination demonstrates plaque in the coronaryarteries. - The amount of plaque in the coronary arteries directly correlates withthe risk for heart attack and other coronary events (such as bypass orstenting). - As discussed above, the coronary artery calcium score is intended forrisk assessment in patients without cardiovascular symptoms. If you arehaving chest pain or other potential cardiovascular symptoms, see yourphysician. Recommendations: - To lower your cardiovascular risk, we strongly recommend adherence tohealthy lifestyle behaviors including: - Following a heart healthy diet focused on modest portion sizes, a highintake of fresh fruits and vegetables, whole grains, healthy fats (oliveoil, nuts and seeds, avocados), and healthy proteins (unprocessed meats,fish, legumes). - Following an active lifestyle including 30-45 minutes of moderateintensity exercise 5-6 times per week. - Avoidance of tobacco products. - Cardiovascular preventive medication, including a daily aspirin andcholesterol-lowering statin medications have been shown to reduce the riskof a future heart attack and stroke, especially in individuals at higherrisk for heart disease. - We recommend that individuals with calcified plaque discuss the risksand benefits of cholesterol-lowering medications, blood pressuremedications, and aspirin with their primary care physician.Cholesterol-lowering medications have been shown to reduce the risk ofheart attack in individuals at elevated risk, including in patients with? normal? cholesterol levels at baseline. - A coronary artery calcium score is not a test for blockages, it is atest for underlying plaque. An elevated calcium score is not an indicationfor additional testing for coronary heart disease though one may beconsidered based on your clinical history. The results of your coronaryartery calcium score should be reviewed by your primary care provider orcardiologist. - These recommendations are generalized and may not specifically apply toyou as an individual. Your primary care physician is in the best positionto provide advice on your care and clinical decisions should ultimately bemade by you and your physician. EXTRA-CARDIAC FINDINGS: Incidental 5 mm left upper lobe pulmonary nodule image number 1 of series3. 6 mm subpleural nodule within the lingula on image number 25 series3. IMPRESSION: 1. Coronary calcium score of 2 which is at the 34th percentile. 2. Two incidental left lung pulmonary nodules. Correlation with smokinghistory is suggested. Consider 6-[address] chest follow-up to determinestability of these incidental nodules. Please note that all CT scans at this facility use dose modulation,iterative reconstruction, and/or weight-based dosing when appropriate toreduce radiation dose to as low as reasonably achievable. Dictated by Ulisses Montesinos MD @ 05/19/2024 4:19:09 PM (Electronically Signed) Referral Self CT from Last 3 Months Care Teams Learning Support Services Director Relationship Specialty Start Date End Date Mamie Dallas MD [address] [place] [address] PCP - General Family Practice 05/16/24
--- OUTSIDE RECORDS SUMMARY | 2024-06-20 11:22 | XMS_ITS | Clinical Summary ---
Author Organization [facility] Address [address] [place] [address] Care Team Providers Care Research Technologist Name Role Phone Rahul Sepulveda APRN, CNP Primary Care Provid er Source Comments You are receiving this document as you are listed as the primary care provider,follow-up provider, or the patient has been referred to you for consultation.This is in compliance with the Medicare andHol[facility] Health Systemcaid EHR Incentive Program,which states Providers who transition their patient to another setting of careor provider of care or refers their patient to another provider of care shouldprovide summary care record for each transition of care or referral. [facility] Allerg[facility] No known active allergies Medications Medication Sig Dispensed Refills Start Date End Date Status methylPREDNISolone (MEDROL 21 TABLET DOSEPACK) 4 MG tabletIndications:I njury of right foot, initial encounter Follow package directions 21 Tablet 08/15/2022 Active Active Problems No known active problems Immunizations Name Administration Dates Next Due Flu Vac Preserv Free (3+yrs) 07/27/2012,07/11/20 07 Influenza IIV4 (Quadrivalent) 0.5mL (29314) 02/2022,07/19/2020,08/08/2013 Influenza, Unspecified Formulation 07/02/2002 Moderna Monovalent [...] Comments Blood Pressure 130/74 07/21/2022 3:06 PM TIP FIXER Pulse 85 07/21/2022 3:06 PM TIP FIXER Temperature 36.2 ??C (97.2 ??F) 08/15/2022 8:09 AM CS T Respiratory Rate - - Oxygen Saturation 96% 07/21/2022 3:06 PM TIP FIXER Inhaled Oxygen Concentration - - Weight 80.3 kg (177 lb) 10/05/2023 7:34 AM TIP FIXER Height 175.3 cm (5' 9) 10/05/2023 7:34 AM TIP FIXER Body Mass Index 26.14 10/05/2023 7:34 AM TIP FIXER Plan of Treatment Health Maintenance Due Date [...] LDL (IF NEEDED) Routine 08/08/2013 11:29 AM TIP FIXER Screening for lipoid disorders from Last 3 Months or Most Recently Relevant to Health Maintenance Results * FIT Colon Rectal Cancer Screening (02/06/2022 7:20 AM CDT) FIT Specimen 1 Negative Negative 02/08/2022 8:54 AM CDT [facility] Stool Non-blood Collection / Unknown 02/06/2022 7:20 AM CDT 02/07/2022 9:21 PM CDT Ana Martini APRN, OPAL LAB_1 [facility] [address] [phone] * (ABNORMAL) Lipid Panel and Direct LDL(If Needed) (08/08/2013 11:29 AM TIP FIXER) Cholesterol 222(H) 0 - 200 mg/dL HP CONVERSION Triglycerides 78 0 - 149 mg/dL HP CONVERSION HDL Cholesterol 50 >39 mg/dL HP CONVERSION Cholesterol/HDL Ratio Screen 4.4 HP CONVERSION LDL Calculated 156(H) 19 - 130 mg/dL HP CONVERSION Hours Fasting 12.0 HP CONVERSION 08/08/2013 11:2 9 AM TIP FIXER 08/08/2013 11:29 AM TIP FIXER Narrative HP CONVERSION - 08/08/2013 12:19 PM TIP FIXER Performed at [facility], [address] [place] [address] Marie Hess APRN, CNP LAB_1 HP CONVERSION from Last 3 Months or Most Recently Relevant to Health Maintenance Care Teams Research Technologist Relationship Specialty Start Date End Date Rahul Sepulveda, BRIAN FREEDMAN [address] [place] [address] PCP - General 11/14/10
--- OUTSIDE RECORDS SUMMARY | 2024-06-20 11:22 | XMS_ITS | Encounter Summary ---
Author Organization [facility] [facility] Address [address], [place] [address] Care Team Providers Care Grid Trimmer Name Role Phone Rahul Sepulveda APRN, SLIP LASTER Primary Care Provid er Encounter Details Date Type Department Care Team (Late st Contact Info) Description 01/26/2022 Lab Requisition Tre [phone] Ana Martini APRN, DNP [address] [facility] [address] [place] [address] Encounter for screening for malignant neoplasm of [...] 1 Negative Negative 02/08/2022 8:54 AM CDT [facility] Stool Non-blood Collection / Unknown 02/06/2022 7:20 AM CDT 02/07/2022 9:21 PM CDT Ana M Lianet FREEDMAN DNP LAB_1 Performing Organization Address [facility] de Phone Number [facility] [address] [place] [address] * [facility] (01/27/2022 9:37 PM CDT) [facility] SENT Yes 02/07/2022 9:21 PM CDT [facility] K[facility] RECEIVED Kit Received at [facility] 02/07/2022 9:[address] [facility] Stool Non-blood Collection / Unknown 01/27/2022 9:37 PM CDT 01/27/2022 9:38 PM CDT Ana Martini APRN, OPAL LAB_1 Performing Organization Address [facility] Phone Number [facility] [address] [place] [address] documented in this encounter Visit Diagnoses Diagnosis Encounter for screening for malignant neoplasm of colon Special screening for malignant neoplasms, colon documented in this encounter Care Teams Grid Trimmer Relationship Specialty Start Date End Date Rahul Sepulveda APRN, BRIAN [address] [place] [address] PCP - General 11/14/10 documented as of this encounter
--- NOTE | 2024-06-20 12:00 | CRLHL7_ITS ---
For Patients: As a result of the Century Cures Act, medical imaging exams and procedure reports are released immediately into your electronic medical record. You may view this report before your referring provider. If you have questions, please contact your health care provider. INDICATION: Right calf pain, history of PE and DVT TECHNIQUE: Ultrasound venous duplex lower right extremity. Compression venous exam was performed using mckeon-scale, color Doppler, and spectral Doppler imaging. COMPARISON: None. FINDINGS: Sonographic imaging demonstrates the right common femoral, deep femoral, superficial femoral, popliteal, posterior tibial and greater saphenous and the contralateral left common femoral veins to be fully compressible with normal color Doppler blood flow. There is minimal superficial thickening of the saphenous vein which may represent minimal phlebitis. No evidence of mass or fluid collection in the area of palpable concern. IMPRESSION: No evidence of deep venous thrombosis. Questionable subtle nodularity of the superficial saphenous vein which may represent mild phlebitis changes. Dictated by Bishop Berkowitz MD @ 06/20/2024 1:08:53 PM (Electronically Signed)
== END 2024-06-20 11:20 | disposition home or self-care (01) ==
PROVIDERS: PCP Family Medicine; Visit Provider Physician Assistant Surgical
DX: M79.661 Pain in right lower leg (principal); Z86.718 Personal history of other venous thrombosis and embolism; Z86.711 Personal history of pulmonary embolism
CPT/HCPCS: 93971

== ENCOUNTER 2024-08-06 09:16 | Emergency (ER) | payer OTHER, SELFPAY ==
[2024-08-06 09:25] VITALS: BP 136/82; PULSE 70; RESP 18; TEMP 36.4; O2SAT 97; BMI 27.6
[2024-08-06 10:13] LABS: PCR FLU A Negative PCR FLU A (Negative); PCR FLU B Negative PCR FLU B (Negative); PCR RSV Negative PCR RSV (Negative); SARS PCR* Negative SARS-CoV-2 (Negative)
--- NOTE | 2024-08-06 10:32 | ED.GENADULT ---
HPI - General Adult General Chief complaint: Cough Stated complaint: respiratory symptoms x10 days Time Seen by Provider: 08/06/24 10:17 Source: patient Mode of arrival: ambulatory Limitations: no limitations History of Present Illness HPI narrative: 59-year-old male presenting today with 10 days of congestion, nasal discharge and cough. Patient thought he felt better several days ago for about a day and half and then his symptoms came back. He has facial pressure. He denies any fevers. Son had similar symptoms but recovered rather quickly. Related Data Home Medications ?Medication ?Instructions ?Recorded ?Confirmed cetirizine 10 mg tablet (Zyrtec) 10 mg PO QDAY 03/13/24 06/20/24 inositol 600 mg/600 mg (1/4 mg PO DAILY 03/13/24 06/20/24 teaspoonful) oral powder nitric oxide PO DAILY 03/13/24 06/20/24 acetaminophen 500 mg tablet 1,000 mg PO Q6H PRN 03/25/24 06/20/24 (Tylenol Extra Strength) calm magnesium PO .hs PRN 03/25/24 06/20/24 magnesium glycinate 100 mg PO BID 03/25/24 06/20/24 turmeric root extract 500 mg tablet 500 mg PO QDAY 04/29/24 06/20/24 vitamin D3 125 mcg (5,000 cap PO 06/20/24 06/20/24 unit)-vitamin K2 100 mcg capsule Previous Rx's ?Medication ?Instructions ?Recorded apixaban 5 mg tablet (Eliquis) 5 mg PO BID #180 tabs 03/13/24 propranolol 10 mg tablet 10 mg PO TID PRN anxiety and 03/13/24 elevated blood pressure #90 tabs amoxicillin 875 mg-potassium 1 tab PO BID #10 tabs 08/06/24 clavulanate 125 mg tablet Allergies Allergy/AdvReac Type Severity Reaction Status Date / Time No Known Drug Allergies Allergy Verified 06/20/24 09:30 Review of Systems Status of ROS: Reports: 6 or more systems reviewed and unremarkable except as noted in History and below [facility] Medical History Hypercholesterolemia ?E78.00 - Pure hypercholesterolemia, unspecified (ICD-10) Surgical History History of tonsillectomy (~1976) ?Z90.89 - Acquired absence of other organs (ICD-10) Social History Smoking Status: Never smoker Second hand tobacco smoke exposure: No How often do you have a drink containing alcohol: never AUDIT-C Alcohol total score: 0 Non-prescribed substance use: denies use Exam Narrative: Exam Narrative: Well-nourished well-developed patient in no acute distress. Alert and oriented. Answers questions appropriately. Mood and affect are appropriate. Thoughts are goal oriented and rational. No tangential or magical thinking noted. Patient speaks in full sentences without needing to catch his breath. Voice is a bit congested. HEENT: Normocephalic atraumatic. Pupils are equally round reactive to light. Extraocular muscles are intact. Conjunctivae are moist without any icterus noted. Moist mucous membranes. Posterior pharynx is normal. Neck is soft without any lymphadenopathy or thyromegaly. No masses are appreciated. TMs are clear bilaterally. Cardiovascular: Heart is regular rate and rhythm S1 and S2 are present without any murmurs. Lungs: Clear to auscultation bilaterally no wheezes rhonchi or rales are appreciated. Patient takes deep breaths without any discomfort. Skin: Well perfused without any obvious rashes. Const: Vital Signs, click to edit/add: Vital Signs - 24 hr 08/06/24 09:25 Temperature 97.6 F Pulse Rate [Pulse Oximeter] 70 Respiratory Rate 18 Blood Pressure [Ri ght Upper Arm] 136/82 Pulse Oximetry 97 Oxygen Delivery Me thod Room Air Course Vital Signs Vital signs: Initial Vital Signs Temperature 97.6 F 08/06/24 09:25 Temperature Source Temporal Artery Scan 08/06/24 09:25 Pulse Rate 70 08/06/24 09:25 Respiratory Rate 18 08/06/24 09:25 Blood Pressure 136/82 08/06/24 09:25 Blood Pressure Mean 100 08/06/24 09:25 Pulse Oximetry 97 08/06/24 09:25 Oxygen Delivery Method Room Air 08/06/24 09:25 Vital Signs Temperature 97.6 F 08/06/24 09:25 Pulse Rate 70 08/06/24 09:25 Respiratory Rate 18 08/06/24 09:25 Blood Pressure 136/82 08/06/24 09:25 Pulse Oximetry 97 08/06/24 09:25 Oxygen Delivery Method Room Air 08/06/24 09:25 Temperature 97.6 F 08/06/24 09:25 Pulse Rate 70 08/06/24 09:25 Respiratory Rate 18 08/06/24 09:25 Blood Pressure 136/82 08/06/24 09:25 Pulse Oximetry 97 08/06/24 09:25 Oxygen Delivery Method Room Air 08/06/24 09:25 Medical Decision Making MDM Narrative Medical decision making narrative: 59-year-old male with facial pressure, nasal congestion, worsening over the last several days. Certainly concerned about sinus infection at this time. Given his normal pulmonary exam and lack of fevers I do not think patient has pneumonia. His triple swab was negative. At this time we will treat with Augmentin for 5 days. Follow-up is needed. Lab Data Labs: Lab Results 08/06/24 Range/Units 09:27 SARS-CoV-2 (PCR) Negative SARS-CoV-2 (Negative) Influenza Type A (PCR) Negative PCR FLU A (Negative) Influenza Type B (PCR) Negative PCR FLU B (Negative) RSV (PCR) Negative PCR RSV (Negative) Discharge Plan Discharge Clinical Impression: Acute sinusitis Patient Disposition: Home, Self-Care Condition: Stable Additional Instructions: Continue sinus rinses daily. Take all antibiotics as prescribed - you will be treated with Augmentin 2 times per day for 5 days. Okay to take Tylenol as needed for discomfort. Follow-up with primary care as needed. Prescriptions: New amoxicillin-pot clavulanate 875-125 mg tablet 1 tab PO BID Qty: 10 0RF No Action nitric oxide PO DAILY inositol 600 mg/600 mg (1/4 teaspoon) powder PO DAILY cetirizine [Zyrtec] 10 mg tablet 10 mg PO QDAY Eliquis 5 mg tablet 5 mg PO BID Qty: 180 3RF propranolol 10 mg tablet 10 mg PO TID PRN (Reason: anxiety and elevated blood pressure) Qty: 90 3RF Patient Comments: 1-2 everyday calm magnesium PO .hs PRN magnesium glycinate 100 mg magnesium capsule 100 mg PO BID acetaminophen [Tylenol Extra Strength] 500 mg tablet 1,000 mg PO Q6H PRN turmeric root extract 500 mg tablet 500 mg PO QDAY vitamin D3-vitamin K2 125 mcg (5,000 unit)-100 mcg capsule PO Follow Up/Referrals: Janes Dallas MD [Primary Care Provider] - Stand Alone Forms: [employer] Info Instructions
== END 2024-08-06 10:46 | disposition home or self-care (01) ==
LOC: ED 10:39
PROVIDERS: Emergency Provider Family Medicine; PCP Family Medicine
DX: J01.90 Acute sinusitis, unspecified (principal)
CPT/HCPCS: 87631; 99283

== ENCOUNTER 2024-09-08 07:16 | Outpatient (CLI) | payer OTHER, SELFPAY ==
--- NOTE | 2024-09-08 08:37 | P.ANES_ITS ---
Anesthesia Charges Start Date/Time Anesthesia Start Date: 09/08/24 Anesthesia Start Time: 07:59 Stop Date/Time Anesthesia Stop Date: 09/08/24 Anesthesia Stop Time: 08:35 Coding CPT Codes CPT Codes: LEX LWR INTST NDSC NOS - 66017 ([id number]) P2 - PATIENT W/MILD SYST DISEASE, QK - ELECTION ASSISTANT 2-4 CNCRNT ANES PROC, QX - STUDENT MINISTRIES DIRECTOR SVC W/ MD MED DIRECTION
--- NOTE | 2024-09-08 08:37 | W.ANESCHARGE ---
Anesthesia Charges Start Date/Time Anesthesia Start Date: 09/08/24 Anesthesia Start Time: 07:59 Stop Date/Time Anesthesia Stop Date: 09/08/24 Anesthesia Stop Time: 08:35 Coding CPT Codes CPT Codes: LEX LWR INTST NDSC NOS - 66576 ([id number]) P2 - PATIENT W/MILD SYST DISEASE, QK - VIDEOTAPE OPERATOR 2-4 CNCRNT ANES PROC, QX - EXECUTIVE STAFF ASSISTANT SVC W/ MD MED DIRECTION
--- NOTE | 2024-09-08 09:07 | P.ANES_ITS ---
Anesthesia Charges Start Date/Time Anesthesia Start Date: 09/08/24 Anesthesia Start Time: 07:59 Stop Date/Time Anesthesia Stop Date: 09/08/24 Anesthesia Stop Time: 08:35 Coding CPT Codes CPT Codes: LEX LWR INTST NDSC NOS - 72926 ([id number]) P2 - PATIENT W/MILD SYST DISEASE, QK - WHARF TENDER HEAD 2-4 CNCRNT ANES PROC, QX - GARMENT CUTTER SVC W/ MD MED DIRECTION
--- NOTE | 2024-09-08 09:07 | W.ANESCHARGE ---
Anesthesia Charges Start Date/Time Anesthesia Start Date: 09/08/24 Anesthesia Start Time: 07:59 Stop Date/Time Anesthesia Stop Date: 09/08/24 Anesthesia Stop Time: 08:35 Coding CPT Codes CPT Codes: LEX LWR INTST NDSC NOS - 63715 ([id number]) P2 - PATIENT W/MILD SYST DISEASE, QK - RESEARCH ENGINEER MARINE EQUIPMENT 2-4 CNCRNT ANES PROC, QX - EDUCATIONAL ADVISOR SVC W/ MD MED DIRECTION
== END 2024-09-08 07:17 | disposition home or self-care (01) ==
LOC: OP CLINIC 07:17
PROVIDERS: PCP Family Medicine; Visit Provider Surgery
DX: R19.5 Other fecal abnormalities (principal); D12.2 Benign neoplasm of ascending colon; D12.3 Benign neoplasm of transverse colon; D12.8 Benign neoplasm of rectum; K62.89 Other specified diseases of anus and rectum
CPT/HCPCS: 00811; 45380; 45385; 88305; J2250; J3010